=== PATIENT | male | born 1985 | race Hispanic/Latino ===

== ENCOUNTER 2019-03-06 21:20 | Observation (INO) | payer MEDICARE, OTHER ==
[2019-03-06] MEDS ORDERED: NA CHLORIDE 0.9% 1,000 ML ONE (21:58)
[2019-03-06 22:52] LABS: Absolute Lymphocytes (CBC) 1.3 K/uL (0.7-4.9); Basophils % 0.4 % (0-1.3); Hematocrit 43.7 % (39.6-49.0); Lymphocytes % 9.8 % (15.3-44.8); RBC Red Blood Cell Count 5.01 M/uL (4.33-5.43)
[2019-03-06 22:53] LABS: Protime INR 1.13
[2019-03-06] MEDS ORDERED: NA CHLORIDE 0.9% 250 ML ONE (23:03)
[2019-03-06] MEDS ORDERED: NA CHLORIDE 0.9% 2,000 ML ONE (23:03)
[2019-03-06] MEDS ORDERED: VANCOMYCIN 1 GM/VIAL ONE (23:03)
[2019-03-06] MEDS ORDERED: PIPER/TAZO/NS 3.375gm 3.375 GM/100 ML BAG ONE (23:03)
[2019-03-06 23:12] LABS: Blood Morphology Comment NOT SEEN (NOT SEEN); Platelet Estimate ADEQ
[2019-03-06 23:50] LABS: ALT/SGPT 24 U/L (12-78); AST/SGOT 18 U/L (15-37); Albumin 3.4 g/dL (3.4-5.0); Alkaline Phosphatase 91 U/L (45-117); BUN Blood Urea Nitrogen 44 mg/dL (7-18); Bicarbonate 25 mmol/L (21-32); Bilirubin Direct 0.1 mg/dL (0-0.2); Bilirubin Total 0.4 mg/dL (0.2-1.0); Glucose Level 92 mg/dL (74-106); Magnesium 2.2 mg/dL (1.8-2.4); NT PRO-BNP 36 pg/mL (<125); Protein, Total 7.6 g/dL (6.4-8.2); Sodium Level 138 mmol/L (136-145); Thyroid Stimulating Hormone 0.563 uIU/mL (0.360-3.740); Troponin (Emerg Dept Use Only) < 0.02 ng/mL (0.0-0.045)
[2019-03-06 23:51] LABS: Potassium 6.2 mmol/L (3.5-5.1)
[2019-03-07 00:11] LABS: Urine Blood 2+ (NEG); Urine Glucose NEGATIVE (NEG); Urine Protein TRACE (NEG)
[2019-03-07] MEDS ORDERED: ALBUTEROL 2.5 MG/3 ML NEB SOL ONE (00:24)
[2019-03-07] MEDS ORDERED: INSULIN -REGULAR HUMAN 50 UNIT/0.5 ML ML ONE (00:25)
[2019-03-07] MEDS ORDERED: D50W 25 GM/50 ML SYRINGE IV ONE (00:28)
[2019-03-07] MEDS ORDERED: SOD POLYSTYREN SUL 15 GM/60 ML UCUP ONE (00:28)
[2019-03-07 00:41] LABS: Urine Culture Reflex Order NOT NEEDED
[2019-03-07 00:42] LABS: Urine Bacteria <20 /HPF (NONE SEEN)
--- NOTE | 2019-03-07 01:17 | ER ---
Nurse's Notes [facility] Name: Rusty Han Age: 33 yrs Sex: Male : 1985 Arrival Date: 03/06/2019 Time: 21:22 Bed 19 Private MD: Diagnosis: Acute kidney failure;Hyperkalemia;Hypothermia;Elevated white blood cell count;Sepsis Presentation: 03/06 21:10 Presenting complaint: Patient states: that he has been increasingly short of breath fc that comes and goes. But again it started at 1600 today and has not stopped. Pt is also dizzy, diaphoretic, weak and dehydrated. Pt does have a wound to right heel that he says having increasing amt of pus and continuous pain. Transition of care: patient was not received from another setting of care. Onset of symptoms was February 2019. Risk Assessment: Do you want to hurt yourself or someone else? Patient reports no desire to harm self or others. Initial Sepsis Screen: Does the patient meet any 2 criteria? RR > 20 per min. Temp <36.0*C (96.8*F)) or > 38.3*C (100.9*F). HR > 90 bpm. Yes Does the patient have a suspected source of infection? Yes: Other: unknown If YES to both, name of provider notified: Hong DODGE Care prior to arrival: Glucose check: 160. 21:10 Method Of Arrival: EMS: [facility] 21:10 Acuity: BRITTNEY 2 Triage Assessment: 22:07 Respiratory: Reports. ca1 22:08 Respiratory: ca1 22:08 Respiratory: Onset: The symptoms/episode began/occurred. ca1 Historical: - Allergies: 21:31 No Known Allergies; fc - Home Meds: 21:31 baclofen 20 mg Oral tab 1 tab 3 times per day [Active]; Keppra 1,000 mg Oral tab 1 tab fc every 12 hours [Active]; metoprolol tartrate 50 mg Oral tab 1 tab 2 times per day [Active]; alprazolam 0.5 mg oral TbDL 1 tab 3 times per day [Active]; [place] 10-325 mg Oral tab 1 tab every 6 hours [Active]; - PMHx: 21:31 Anxiety; muscle spasms; Hypertension; osteomyelitis; Seizures; T5 injury; Chronic pain; fc - PSHx: 21:31 spinal [id number]; foot surg; - Immunization history:: Last tetanus immunization: up to date. - Social history:: Smoking status: Patient/guardian denies using tobacco, Patient/guardian denies using alcohol, street drugs. - Ebola Screening: : Patient negative for fever greater than or equal to 101.5 degrees Fahrenheit, and additional compatible Ebola Virus Disease symptoms Patient denies exposure to infectious person Patient denies travel to an Ebola-affected area in the 21 days before illness onset. Screenin:10 Abuse screen: Denies threats or abuse. Nutritional screening: No deficits noted. Tuberculosis screening: No symptoms or risk factors identified. Fall Risk Fall in past 12 months (25 points). Secondary diagnosis (15 points) impaired mobility, No IV (0 pts). Ambulatory Aid- Crutches/Cane/Walker (15 pts). Gait- Weak (10 pts.). Mental Status- Overestimates/Forgets Limitations (15 pts.). Total [place] Fall Scale indicates High Risk Score (45 or more points). Fall prevention measures have been instituted. Side Rails Up X 2 Placed Close to Nursing Station Frequent Obs/Assessments Occuring As available patient and family educated on Fall Prevention Program and Strategies. Assessment: 21:30 General: Appears in no apparent distress. ill, Behavior is calm, cooperative, ca1 appropriate for age. Pain: Complains of pain in right foot Pain does not radiate. Pain currently is 3 out of 10 on a pain scale. Neuro: Level of Consciousness is awake, alert, obeys commands, Oriented to person, place, time, situation. Cardiovascular: Heart tones S1 S2 present Capillary refill < 3 seconds Patient's skin is warm and dry. Pulses are all present. Rhythm is sinus tachycardia. Respiratory: Airway is patent Respiratory effort is even, unlabored, Respiratory pattern is regular, symmetrical, Breath sounds are clear bilaterally. GI: Abdomen is round non-distended, Bowel sounds present X 4 quads. Abd is soft and non tender X 4 quads. : No deficits noted. No signs and/or symptoms were reported regarding the genitourinary system. EENT: No deficits noted. No signs and/or symptoms were reported regarding the EENT system. Derm: Skin is intact, is healthy with good turgor, Skin is diaphoretic, Skin is pale, Skin temperature is cold. Musculoskeletal: Amputation of Circulation, motion, and sensation intact. Capillary refill < 3 seconds, Range of motion: intact in all extremities. 21:45 Reassessment: IV inserted but was unable to draw blood. Called lab. Notified CN. ca1 22:11 Reassessment: Clinical Dietician attempted to draw blood. Unsuccessful. Notified CN and ca1 provider. 22:28 Reassessment: Patient appears in no apparent distress at this time. Patient and/or ca1 family updated on plan of care and expected duration. Pain level reassessed. Neuro: Level of Consciousness is awake, alert, obeys commands, Oriented to person, place, time, situation. Derm: Skin is moist, Skin is pink, Skin temperature is cool. 23:14 Reassessment: Patient appears in no apparent distress at this time. Patient and/or ca1 family updated on plan of care and expected duration. Pain level reassessed. Patient is alert, oriented x 3, equal unlabored respirations, skin warm/dry/pink. Notified provider regarding inability to obtain 2nd set of cultures. Provider says to cancel it and start antibiotics. Called lab and talked to Joesph to cancel 2nd set of cultures. 03/07 00:08 Reassessment: Patient appears in no apparent distress at this time. Patient and/or ca1 family updated on plan of care and expected duration. Pain level reassessed. Patient is alert, oriented x 3, equal unlabored respirations, skin warm/dry/pink. Report given IZABELA Diggs. 00:10 Reassessment: Patient appears in no apparent distress at this time. Patient and/or cc3 family updated on plan of care and expected duration. Pain level reassessed. Patient is alert, oriented x 3, equal unlabored respirations, skin warm/dry/pink. Received this male patient from IZABELA Miller as a case of shortness of breath, with midline IV at the right upper arm with ongoing IVF bolus of NS 1 liter and Vancomycin 1 gram infusing well; another IV cannula gauge 22 at the left wrist with ongoing IVF bolus of another liter of NS and Zosyn 3.375 grams infusing well. On room air saturating 100%, not in distress. Patient denies pain at this time. Patient states feeling better. Patient states symptoms have improved. 00:10 General: Appears in no apparent distress. comfortable, Behavior is calm, cooperative, cc3 appropriate for age. 00:10 Pain: Denies pain. Neuro: Level of Consciousness is awake, alert, obeys commands, cc3 Oriented to person, place, time, situation, Appropriate for age. Cardiovascular: Denies chest pain, Capillary refill < 3 seconds Patient's skin is warm and dry. Respiratory: Airway is patent Respiratory effort is even, unlabored, Respiratory pattern is regular, symmetrical. GI: Abdomen is round obese. : Reports he self-catheterizes. EENT: No signs and/or symptoms were reported regarding the EENT system. Derm: Skin is intact, is healthy with good turgor, Skin is pink, warm \T\ dry. normal, Wound noted right plantar area healed wound. 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 Circulation, motion, and sensation intact. Range of motion: intact in all extremities. 01:18 Reassessment: Patient appears in no apparent distress at this time. Patient and/or cc3 family updated on plan of care and expected duration. Pain level reassessed. Patient is alert, oriented x 3, equal unlabored respirations, skin warm/dry/pink. 02:00 Reassessment: Patient appears in no apparent distress at this time. Patient and/or cc3 family updated on plan of care and expected duration. Pain level reassessed. Patient is alert, oriented x 3, equal unlabored respirations, skin warm/dry/pink. Room available in 430, report called and handed over to IZABELA Suarez for continuity of care and management. IZABELA Gibbs assisted the patient to self-catheterize himself with a straight cath just to drain his urine with an output of 800 mL. 02:17 Reassessment: Patient appears in no apparent distress at this time. Patient and/or cc3 family updated on plan of care and expected duration. Pain level reassessed. Patient is alert, oriented x 3, equal unlabored respirations, skin warm/dry/pink. Patient left ER for admission vitally stable by wheelchair escorted by me. No valuables left in the patient's room. Patient denies pain at this time. Patient states feeling better. Patient states symptoms have improved. Vital Signs: 03/06 21:10 BP 111 / 92; Pulse 108; Resp 22; Temp 95.0(O); Pulse Ox 95% on R/A; Weight 127.01 kg fc (R); Height 5 ft. 7 in. (170.18 cm) (R); Pain 4/10; 22:08 BP 109 / 84; Pulse 102; Resp 22 S; Pulse Ox 100% on 2 lpm NC; ca1 22:43 BP 110 / 83; Pulse 100; Resp 21; Pulse Ox 100% on 2 lpm NC; ca1 23:14 BP 105 / 82; Pulse 94; Resp 20 S; Pulse Ox 100% on 2 lpm NC; ca1 0804 00:00 BP 111 / 85; Pulse 96; Resp 16 S; Pulse Ox 100% on R/A; ca1 00:15 BP 118 / 81; Pulse 92; Resp 22 S; Temp 97.7(O); Pulse Ox 100% on R/A; cc3 01:16 BP 113 / 81; Pulse 104; Resp 20 S; Pulse Ox 100% on Nebulizer Mask; cc3 02:00 BP 117 / 79; Pulse 115; Resp 20 S; Temp 98.6(TE); Pulse Ox 98% on R/A; cc3 03/06 21:10 Body Mass Index 43.85 (127.01 kg, 170.18 cm) fc ED Course: 03/06 21:10 Arm band placed on Patient placed in an exam room, on a stretcher. fc 21:10 Patient has correct armband on for positive identification. Placed in gown. Bed in low fc position. Call light in reach. Side rails up X2. ekg monitor tech on. Pulse ox on. NIBP on. 21:10 No provider procedures requiring assistance completed. fc 21:22 Patient arrived in ED. fc 21:22 Hong Vuong PA is PHCP. jr8 21:22 Vladislav Perez MD is Attending Physician. jr8 21:27 Triage completed. fc 21:43 EKG done, by ED staff, reviewed by Hong DODGE. jp3 21:44 Inserted saline lock: 22 gauge in left forearm, using aseptic technique. ca1 21:45 XRAY Chest (1 view) In Process Unspecified. EDMS 21:52 Angela Corona, RN is Primary Nurse. ca1 22:33 Initial lab(s) drawn, by me, sent to lab. First set of blood cultures drawn by me. fc Inserted 18 gauge 10 cm midline to right upper brachial vein on second attempt. First attempt cath would not thread in. Second line with good blood return and flushes well. 23:45 Straight cath inserted, using sterile technique, 16 Fr. Specimen obtained. Returned ca1 clear yellow urine. Patient tolerated well. 23:52 Notified Nurse Practitioner and/or Physician Network Announcer of Notified primary nurse of lp1 Potassium 6.2. 03/07 01:15 Riley Amaya MD is Hospitalizing Provider. jr8 01:18 X-ray completed. Portable x-ray completed in exam room. Patient tolerated procedure mh1 well. 01:19 XRAY Foot RIGHT 3 View In Process Unspecified. EDMS 02:00 Patient admitted, IV remains in place. cc3 Administered Medications: 03/06 22:01 Drug: NS 0.9% 1000 ml Route: IV; Rate: 1000 ml; Site: left forearm; ca1 23:18 Follow up: Response: No adverse reaction; IV Status: Completed infusion ca1 23:00 Drug: Zosyn 3.375 grams Route: IVPB; Infused Over: 60 mins; Site: left forearm; ca1 03/07 00:15 Follow up: Response: No adverse reaction; IV Status: Completed infusion; IV Intake: cc3 100ml 03/06 23:00 Drug: NS 0.9% (30 ml/kg) 30 ml/kg Route: IV; Rate: bolus; Site: right upper arm; ca1 03/07 02:15 Follow up: Response: No adverse reaction; IV Status: Completed infusion; IV Intake: cc3 3810.3ml 03/06 23:26 Drug: vancoMYCIN 1 grams Route: IVPB; Infused Over: 2 hrs; Site: right upper arm; ca1 03/07 01:10 Follow up: Response: No adverse reaction; IV Status: Completed infusion; IV Intake: cc3 250ml 00:30 Drug: Kayexalate 30 grams Route: PO; cc3 01:00 Follow up: Response: No adverse reaction cc3 00:30 Drug: D50W 50 ml Route: IVP; Site: left wrist; cc3 01:00 Follow up: Response: No adverse reaction cc3 00:35 Drug: Albuterol 2.5 mg Route: Inhalation; cc3 00:37 Drug: Insulin Regular Human 10 units {Co-Signature: [email or web address] (Sai Harris RN).} Route: cc3 IVP; Site: left wrist; 01:00 Follow up: Response: No adverse reaction cc3 00:55 Drug: Albuterol 2.5 mg Route: Inhalation; cc3 01:18 Drug: Albuterol 2.5 mg Route: Inhalation; cc3 01:40 Follow up: Response: No adverse reaction; Marked relief of symptoms cc3 Intake: 00:15 IV: 100ml; Total: 100ml. cc3 01:10 IV: 250ml; Total: 350ml. cc3 02:15 IV: 3810ml; Total: 4160ml. cc3 Output: 00:02 Urine: 200ml (Straight Cath); Total: 200ml. ca1 Outcome: 01:15 Decision to Hospitalize by Provider. jr8 02:00 Admitted to Tele accompanied by nurse, via wheelchair, room 430, with chart, Report cc3 called to IZABELA Suarez 02:00 Condition: stable 02:00 Instructed on the need for admit, Demonstrated understanding of instructions. 02:17 Patient left the ED. cc3 Signatures: Dispatcher [employer] EDMS Colette Benson 1 Andreia Ashraf, RN RN fc Sania Mcgregor, RN RN lp1 Hong Vuong PA PA jr8 Haider Parson 3 Caterina Munroe cc3 Angela Corona RN RN ca1 Sai Harris RN [email or web address] Corrections: (The following items were deleted from the chart) 03/06 22:05 22:05 Inserted saline lock: 22 gauge in left forearm, using aseptic technique. ca1 ca1 22:30 22:08 BP 109 / 84; Pulse 102bpm; Resp 22bpm; Spontaneous; Pulse Ox 100% 2 lpm Nasal ca1 Cannula; ca1 23:20 23:00 Zosyn 3.375 grams IVPB in right forearm over 60 mins ca1 ca1
--- NOTE | 2019-03-07 01:18 | EDPHYS ---
Physician Documentation [facility] Name: Rusty Han Age: 33 yrs Sex: Male : 1985 Arrival Date: 03/06/2019 Time: 21:22 Bed 19 Private MD: ED Physician Vladislav Perez HPI: 03/07 00:45 This 33 yrs old Male presents to ER via EMS with complaints of Shortness Of jr8 Breath. 00:45 The patient has shortness of breath at rest. Onset: The symptoms/episode began/occurred jr8 gradually, 3 day(s) ago. Duration: The symptoms are intermittent. The patient's shortness of breath is aggravated by exertion. Associated signs and symptoms: The patient has no apparent associated signs or symptoms. Severity of symptoms: At their worst the symptoms were moderate in the emergency department the symptoms are unchanged. The patient has not experienced similar symptoms in the past. The patient has not recently seen a physician. Patient stated that he has had recent episodic shortness of breath that is now more persistent. Stated that his right foot also has wound that appears to be draining . Historical: - Allergies: 03/06 21:31 No Known Allergies; fc - Home Meds: 21:31 baclofen 20 mg Oral tab 1 tab 3 times per day [Active]; Keppra 1,000 mg Oral tab 1 tab fc every 12 hours [Active]; metoprolol tartrate 50 mg Oral tab 1 tab 2 times per day [Active]; alprazolam 0.5 mg oral TbDL 1 tab 3 times per day [Active]; Mcallister 10-325 mg Oral tab 1 tab every 6 hours [Active]; - PMHx: 21:31 Anxiety; muscle spasms; Hypertension; osteomyelitis; Seizures; T5 injury; Chronic pain; fc - PSHx: 21:31 spinal ccultor-E7-7; foot surg; fc - Immunization history:: Last tetanus immunization: up to date. - Social history:: Smoking status: Patient/guardian denies using tobacco, Patient/guardian denies using alcohol, street drugs. - Ebola Screening: : Patient negative for fever greater than or equal to 101.5 degrees Fahrenheit, and additional compatible Ebola Virus Disease symptoms Patient denies exposure to infectious person Patient denies travel to an Ebola-affected area in the 21 days before illness onset. ROS: 03/07 00:45 Eyes: Negative for injury, pain, redness, and discharge, ENT: Negative for injury, jr8 pain, and discharge, Neck: Negative for injury, pain, and swelling, Cardiovascular: Negative for chest pain, palpitations, and edema, Abdomen/GI: Negative for abdominal pain, nausea, vomiting, diarrhea, and constipation, Back: Negative for injury and pain, Skin: Negative for injury, rash, and discoloration, Neuro: Negative for headache, weakness, numbness, tingling, and seizure. Respiratory: Positive for dyspnea on exertion, shortness of breath. MS/extremity: Positive for open wound right foot. Exam: 00:45 Eyes: Pupils equal round and reactive to light, extra-ocular motions intact. Lids and jr8 lashes normal. Conjunctiva and sclera are non-icteric and not injected. Cornea within normal limits. Periorbital areas with no swelling, redness, or edema. ENT: Nares patent. No nasal discharge, no septal abnormalities noted. Tympanic membranes are normal and external auditory canals are clear. Oropharynx with no redness, swelling, or masses, exudates, or evidence of obstruction, uvula midline. Mucous membranes moist. Neck: Trachea midline, no thyromegaly or masses palpated, and no cervical lymphadenopathy. Supple, full range of motion without nuchal rigidity, or vertebral point tenderness. No Meningismus. Cardiovascular: Regular rate and rhythm with a normal S1 and S2. No gallops, murmurs, or rubs. Normal PMI, no JVD. No pulse deficits. Respiratory: Lungs have equal breath sounds bilaterally, clear to auscultation and percussion. No rales, rhonchi or wheezes noted. No increased work of breathing, no retractions or nasal flaring. Abdomen/GI: Soft, non-tender, with normal bowel sounds. No distension or tympany. No guarding or rebound. No evidence of tenderness throughout. Back: No spinal tenderness. No costovertebral tenderness. Full range of motion. Neuro: Awake and alert, GCS 15, oriented to person, place, time, and situation. Cranial nerves II-XII grossly intact. Motor strength 5/5 in all extremities. Sensory grossly intact. Cerebellar exam normal. Normal gait. 00:45 Musculoskeletal/extremity: Extremities: grossly normal except: noted in the right foot: Patient has small < 1 cm open wound to right heel. No active draining noted. No erythema/cellulitis , ROM: intact in all extremities, Circulation is intact in all extremities. Sensation intact. 00:45 Skin: Appearance: Color: normal in color, Temperature: cold, Moisture: diaphoretic. Vital Signs: 03/06 21:10 BP 111 / 92; Pulse 108; Resp 22; Temp 95.0(O); Pulse Ox 95% on R/A; Weight 127.01 kg fc (R); Height 5 ft. 7 in. (170.18 cm) (R); Pain 4/10; 22:08 BP 109 / 84; Pulse 102; Resp 22 S; Pulse Ox 100% on 2 lpm NC; ca1 22:43 BP 110 / 83; Pulse 100; Resp 21; Pulse Ox 100% on 2 lpm NC; ca1 23:14 BP 105 / 82; Pulse 94; Resp 20 S; Pulse Ox 100% on 2 lpm NC; ca1 03/07 00:00 BP 111 / 85; Pulse 96; Resp 16 S; Pulse Ox 100% on R/A; ca1 00:15 BP 118 / 81; Pulse 92; Resp 22 S; Temp 97.7(O); Pulse Ox 100% on R/A; cc3 01:16 BP 113 / 81; Pulse 104; Resp 20 S; Pulse Ox 100% on Nebulizer Mask; cc3 02:00 BP 117 / 79; Pulse 115; Resp 20 S; Temp 98.6(TE); Pulse Ox 98% on R/A; cc3 03/06 21:10 Body Mass Index 43.85 (127.01 kg, 170.18 cm) fc MDM: 03/06 21:22 Patient medically screened. jr8 03/07 01:14 Data reviewed: vital signs, nurses notes, lab test result(s), EKG, radiologic studies, jr8 plain films. Data interpreted: Pulse oximetry: on room air is 100 %. Interpretation: normal. Counseling: I had a detailed discussion with the patient and/or guardian regarding: the historical points, exam findings, and any diagnostic results supporting the discharge/admit diagnosis, lab results, radiology results, the need for further work-up and treatment in the hospital. Physician consultation: Riley Amaya MD was called at 01:14, was contacted at 01:14, regarding admission, to the telemetry unit. consult, patient's condition, and will see patient. 03/06 21:23 Order name: Basic Metabolic Panel [facility] 03/06 21:23 Order name: CBC with Diff [facility] 03/06 21:23 Order name: LFT's [facility] 03/06 21:23 Order name: Magnesium; Complete Time: 00:04 8 03/06 21:23 Order name: NT PRO-BNP; Complete Time: 00:04 8 03/06 21:23 Order name: PT-INR; Complete Time: 22:55 8 03/06 21:23 Order name: Troponin (emerg Dept Use Only); Complete Time: 00:04 8 03/06 21:23 Order name: TSH; Complete Time: 00:04 8 03/06 21:23 Order name: T4 Free; Complete Time: 00:04 8 03/06 21:23 Order name: Procalcitonin; Complete Time: 00:38 8 03/06 21:23 Order name: Lactate; Complete Time: 00:04 [facility] 03/06 21:23 Order name: Blood Culture Adult (2) [facility] 03/06 21:23 Order name: Basic Metabolic Panel; Complete Time: 00:04 EDMS 03/06 21:23 Order name: CBC with Automated Diff; Complete Time: 23:18 EDMS 03/06 21:23 Order name: Liver (Hepatic) Function; Complete Time: 00:04 EDMS 03/06 21:35 Order name: Glucose, Ancillary Testing; Complete Time: 21:47 EDMS 03/06 22:54 Order name: Manual Differential; Complete Time: 23:18 EDMS 03/06 23:56 Order name: Urine Dipstick--Ancillary (enter results); Complete Time: 00:24 lp1 03/07 00:04 Order name: Urine Microscopic Only; Complete Time: 00:44 jr8 03/07 01:10 Order name: Cortisol [facility] 03/07 01:34 Order name: Basic Metabolic Panel EDMS 03/07 01:34 Order name: Basic Metabolic Panel EDMS 03/07 01:34 Order name: Basic Metabolic Panel EDMS 03/07 01:34 Order name: CBC with Automated Diff EDMS 03/07 01:34 Order name: CBC with Automated Diff EDMS 03/07 01:34 Order name: CBC with Automated Diff EDMS 03/07 01:34 Order name: Hemoglobin A1c EDMS 03/07 01:34 Order name: Hemoglobin A1c EDMS 03/07 01:34 Order name: Lipid Profile EDMS 03/07 01:34 Order name: Lipid Profile EDMS 03/06 21:23 Order name: XRAY Chest (1 view) jr8 03/06 21:23 Order name: EKG; Complete Time: 21:24 jr8 03/06 21:23 Order name: Cardiac monitoring; Complete Time: 21:44 jr8 03/06 21:23 Order name: EKG - Nurse/Tech; Complete Time: 21:44 jr8 03/06 21:23 Order name: IV Saline Lock; Complete Time: 21:44 8 03/06 21:23 Order name: Labs collected and sent; Complete Time: 22:38 jr8 03/06 21:23 Order name: O2 Per Protocol; Complete Time: 21:44 jr8 03/06 21:23 Order name: O2 Sat Monitoring; Complete Time: 21:44 [facility] 03/07 00:24 Order name: XRAY Foot RIGHT 3 View jr8 03/07 01:34 Order name: CONS Pharmacy Consult EDMS 03/07 01:34 Order name: CONS Pharmacy Consult EDMS 03/07 01:34 Order name: Consistent Carb (ADA) [address] EDMS 03/07 01:34 Order name: Urine Microalbumin/Creatinine EDMS 03/07 01:34 Order name: Urine Microalbumin/Creatinine EDMS 03/07 01:35 Order name: Protime (+INR) EDMS 03/07 01:35 Order name: Protime (+INR) EDMS 03/07 01:35 Order name: Protime (+INR) EDMS 03/07 01:35 Order name: PTT, Activated Partial Thromb EDMS 03/07 01:35 Order name: PTT, Activated Partial Thromb EDMS 03/07 01:37 Order name: Urinalysis W/Microscopic EDMS 03/07 01:37 Order name: Urinalysis W/Microscopic EDMS Administered Medications: 03/06 22:01 Drug: NS 0.9% 1000 ml Route: IV; Rate: 1000 ml; Site: left forearm; ca1 23:18 Follow up: Response: No adverse reaction; IV Status: Completed infusion ca1 23:00 Drug: Zosyn 3.375 grams Route: IVPB; Infused Over: 60 mins; Site: left forearm; ca1 03/07 00:15 Follow up: Response: No adverse reaction; IV Status: Completed infusion; IV Intake: cc3 100ml 03/06 23:00 Drug: NS 0.9% (30 ml/kg) 30 ml/kg Route: IV; Rate: bolus; Site: right upper arm; ca1 03/07 02:15 Follow up: Response: No adverse reaction; IV Status: Completed infusion; IV Intake: cc3 3810.3ml 03/06 23:26 Drug: vancoMYCIN 1 grams Route: IVPB; Infused Over: 2 hrs; Site: right upper arm; ca1 03/07 01:10 Follow up: Response: No adverse reaction; IV Status: Completed infusion; IV Intake: cc3 250ml 00:30 Drug: Kayexalate 30 grams Route: PO; cc3 01:00 Follow up: Response: No adverse reaction cc3 00:30 Drug: D50W 50 ml Route: IVP; Site: left wrist; cc3 01:00 Follow up: Response: No adverse reaction cc3 00:35 Drug: Albuterol 2.5 mg Route: Inhalation; cc3 00:37 Drug: Insulin Regular Human 10 units {Co-Signature: [email or web address] (Sai Harris RN).} Route: cc3 IVP; Site: left wrist; 01:00 Follow up: Response: No adverse reaction cc3 00:55 Drug: Albuterol 2.5 mg Route: Inhalation; cc3 01:18 Drug: Albuterol 2.5 mg Route: Inhalation; cc3 01:40 Follow up: Response: No adverse reaction; Marked relief of symptoms cc3 Disposition: 03/07/19 01:15 Hospitalization ordered by Riley Amaya for Inpatient Admission. Preliminary diagnosis are Acute kidney failure, Hyperkalemia, Hypothermia, Elevated white blood cell count, Sepsis. - Bed requested for Telemetry/MedSurg (Inpatient). - Status is Inpatient Admission. cc3 - Condition is Stable. - Problem is new. - Symptoms have improved. UTI on Admission? No Addendum: 03/08/2019 09:24 Co-signature as Attending Physician, Vladislav Perez MD I agree with the assessment and c [facility] plan of care. Signatures: Dispatcher [employer] Vladislav Abebe MD MD cha Chretien, Felicia, RN RN Hong Vuong PA PA jr8 Caterina Munroe cc3 Angela Corona RN RN [facility] Sai Harris RN [email or web address] Corrections: (The following items were deleted from the chart) 03/07 01:47 01:15 Hospitalization Ordered by Riley Amaya MD for Inpatient Admission. Preliminary [facility] diagnosis is Acute kidney failure; Hyperkalemia; Hypothermia; Elevated white blood cell count; Sepsis. Bed requested for Telemetry/MedSurg (Inpatient). Status is Inpatient Admission. Condition is Stable. Problem is new. Symptoms have improved. UTI on Admission? No. jr8 02:17 01:47 03/07/2019 01:15 Hospitalization Ordered by Riley Amaya MD for Inpatient cc3 Admission. Preliminary diagnosis is Acute kidney failure; Hyperkalemia; Hypothermia; Elevated white blood cell count; Sepsis. Bed requested for Telemetry/MedSurg (Inpatient). Status is Inpatient Admission. Condition is Stable. Problem is new. Symptoms have improved. UTI on Admission? No. theodore
[2019-03-07] MEDS ORDERED: HYDROMORPHONE HCL 1 MG/ML INJ IV PRN (01:27)
[2019-03-07] MEDS ORDERED: ACETAMINOPHEN 500 MG TAB PO PRN (01:27)
[2019-03-07] MEDS ORDERED: ONDANSETRON 4 MG/2 ML VIAL IV PRN (01:27)
[2019-03-07] MEDS ORDERED: VANCOMYCIN/NS 1 gm 1 GM/250 ML BAG IVPB SCH (01:30)
[2019-03-07] MEDS ORDERED: NA CHLORIDE 0.9% 1,000 ML ONE ×2 (01:38→02:53)
[2019-03-07] MEDS ORDERED: Levofloxacin500mg IV 500 MG/100 ML BAG IV SCH (02:00)
[2019-03-07] MEDS ORDERED: NA CHLORIDE 0.9% 1,000 ML IV SCH (02:00)
[2019-03-07 02:50] VITALS: O2SAT 98
[2019-03-07] MEDS ORDERED: Levofloxacin500mg IV 500 MG/100 ML BAG IV ONE (03:02)
[2019-03-07 04:04] VITALS: BMI 42.0
[2019-03-07 05:14] LABS: Urine Appearance CLEAR; Urine Bilirubin NEGATIVE (NEG); Urine Blood NEGATIVE (NEG); Urine Color YELLOW; Urine Glucose NEGATIVE (NEG); Urine Protein NEGATIVE (NEG); Urine Urobilinogen 0.2 mg/dL (0.2-1.0); Urine pH 5.5 (5.0-7.0)
[2019-03-07 05:25] LABS: Barbiturates NEGATIVE (NEGATIVE); Benzodiazepines NEGATIVE (NEGATIVE); Cocaine NEGATIVE (NEGATIVE); METHAMPHETAM POSITIVE (NEGATIVE); Methadone NEGATIVE (NEGATIVE); Opiates NEGATIVE (NEGATIVE); Phencyclidine NEGATIVE (NEGATIVE); THC Cannibis POSITIVE (NEGATIVE)
[2019-03-07 05:30] LABS: Urine Bacteria <20 /HPF (NONE SEEN); Urine Culture Reflex Order REFLEXED; Urine RBC <5 /HPF (NONE SEEN)
[2019-03-07 05:32] LABS: UR MICROALBUMIN 4.2 mg/dL (< 1.9)
[2019-03-07 06:00] LABS: Basophils % 0.7 % (0-1.3); Hematocrit 35.6 % (39.6-49.0); Lymphocytes % 27.3 % (15.3-44.8); MPV 7.9 fL (7.6-11.3); RBC Red Blood Cell Count 4.17 M/uL (4.33-5.43)
[2019-03-07 06:04] LABS: Protime INR 1.06
[2019-03-07 06:15] LABS: BUN Blood Urea Nitrogen 37 mg/dL (7-18); Bicarbonate 24 mmol/L (21-32); Glucose Level 111 mg/dL (74-106); HDL Cholesterol 26 mg/dL (40-60); LDL Cholesterol, Calculated 56 (<130); Potassium 3.8 mmol/L (3.5-5.1); Sodium Level 142 mmol/L (136-145)
[2019-03-07 09:25] VITALS: BP 127/70; TEMP 98.6
[2019-03-07] MEDS ORDERED: METOCLOPRAMIDE 5 MG TAB PO ONE (11:02)
[2019-03-07] MEDS ORDERED: LORAZEPAM 1 MG TABLET PO ONE (11:49)
[2019-03-07] MEDS ORDERED: LORazepam 2 MG/ML VIAL IV ONE (12:18)
--- NOTE | 2019-03-07 12:41 | RAD REPORT ---
EXAM DESCRIPTION: RAD - Chest Single View - 03/06/2019 9:47 pm CLINICAL HISTORY: Dyspnea, intermittent shortness of breath COMPARISON: October 2015 TECHNIQUE: AP portable chest image was obtained 2143 hours . FINDINGS: Lung volumes are low. No focal lung process. Lung markings match comparison. No failure or volume overload. Heart and vasculature are normal. No measurable pleural effusion and no pneumothora x. No acute bony abnormality seen. No acute aortic findings suspected. IMPRESSION: No acute cardiopulmonary process. No significant change from comparison.
--- NOTE | 2019-03-07 12:42 | EKG ---
Test Date: 2019-03-06 Test Time: 21:37:16 Manufacturing Technology Professor: SELMA MEASUREMENT RESULTS: Intervals: Rate: 108 WI: 134 QRSD: 68 QT: 302 QTc: 404 Garrison: P: 35 WI: 134 QRS: 32 T: 21 INTERPRETIVE STATEMENTS: Sinus tachycardia Otherwise normal ECG Compared to ECG 10/05/2015 09:38:12 No significant changes Electronically Signed On 03-07-19 07:13:41 CDT by Aquiles Carye
--- NOTE | 2019-03-07 12:56 | P.SSS ---
Patient History Date of Service: 03/07/19 History of Present Illness: This is a 33-year-old male with significant past medical history of drug abuse with positive UA of med and THC will also abuses his anxiety and anxiety medication came to the ER complaining of having dyspnea and drainage from the foot. Patient was admitted to the hospital for dyspnea and possible infection of the foot. Allergies NKDA Allergy (Uncoded 08/02/15 16:48) Unknown Home Medications: ALPRAZolam [Alprazolam] 0.5 mg PO TID 03/07/19 Baclofen [Lioresal] 20 mg PO TID 03/07/19 Hydrocodone/Acetaminophen [Carlisle 10-325 Tablet] 1 tab PO Q6HR PRN 03/07/19 Metoprolol Tartrate [Lopressor*] 50 mg PO BID 03/07/19 Pantoprazole Sodium 40 mg PO DAILY 03/07/19 Trazodone HCl 50 mg PO BEDTIME PRN 03/07/19 Venlafaxine HCl 75 mg PO DAILY 03/07/19 levETIRAcetam [Keppra*] 1,000 mg PO BID 03/07/19 - Past Medical/Surgical History Has patient received pneumonia vaccine in the past: No Diabetic: No -: osteomyelitis -: anxiety -: chronic pain back -: spinal fracture -: neuropathy -: Pt reports had an infection on right heel in may, unsure of what it was -: paralysis for 3 yrs. 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 moist/pink, EOMI, Sclerae nonicteric Neck: Supple, 2+ carotid pulse no bruit, No LAD, Without JVD or thyroid abnormality Respiratory: Clear to auscultation bilaterally, Normal air movement Cardiovascular: Regular rate/rhythm, Normal S1 S2 Gastrointestinal: Normal bowel sounds, No tenderness Musculoskeletal: No tenderness Integumentary: No rashes Neurological: Normal gait, Normal speech, Normal strength at 5/5 x4 extr, Normal tone, Normal affect Lymphatics: No axilla or inguinal lymphadenopathy - Studies Laboratory Data (last 24 hrs) 03/06/19 22:33: PT 13.3 H, INR 1.13 03/06/19 22:33: WBC 13.3 H, Hgb 14.3, Hct 43.7, Plt Count 392 03/06/19 22:33: Sodium 138, Potassium 6.2 H*, BUN 44 H, Creatinine 1.40 H, Glucose 92, Magnesium 2.2, Total Bilirubin 0.4, AST 18, ALT 24, Alkaline Phosphatase 91 - Diagnosis (Problem(s)) (1) Drug abuse Status: Acute (2) Withdrawal from recreational drug Status: Acute (3) 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 Patient was evaluated thoroughly here in the hospital on physical exam if patient does have chronic stage IV pressure ulcer which has completely healed on the right lower heel. No drainage was noted. Patient does have an appointment with the wound healing center on Friday to follow up for his regular appointment. Patient was given 1 time dose of antibiotics here in the hospital and no other antibiotics were continued after due to no infection found on the physical exam. Patient however will continue to have dyspnea and paranoia along with tachycardia here in the hospital which was most likely secondary to methamphetamine withdrawal as the patient takes on a regular basis. Patient also admitted to over using his anti anxiety medications that he gets from his primary care doctor's office. When patient remained stable patient was discharged home under stable condition. Family at bedside were explained extensive regarding the need to take part in a drug rehab program. Family demonstrated understanding and took the patient home under stable condition - Disposition Disposition: ROUTINE DISCHARGE Condition: GOOD Diet: Regular Activity: Ad josh
--- NOTE | 2019-03-07 14:38 | RAD REPORT ---
EXAM DESCRIPTION: RAD - Foot Right 3 View - 03/07/2019 1:19 am CLINICAL HISTORY: Right heel pain, increasing pain and infectious debris COMPARISON: Right foot April 2015 FINDINGS: The fourth and fifth toes and the fourth metatarsal head has been resected. This is a long -standing finding. Postsurgical hardware is present along the distal tibia. Compared with 2015 there has been volume loss to the calcaneus. Faint lucencies are present in the central calcaneus. There is a small lucent area in the plantar surface mid calcaneus. This is adjacent to the wound. No foreign body or calcification in the soft tissues. . IMPRESSION: Soft tissue wound is present. Areas of lucency in the calcaneus are present has potentia l sites of osteomyelitis. No gross bone destruction.
[2019-03-07] MEDS ORDERED: ENOXAPARIN 30 MG/0.3 ML SQ SCH (17:00)
[2019-03-08] MEDS ORDERED: Levofloxacin500mg IV 500 MG/100 ML BAG IV SCH (03:00)
--- NOTE | 2019-03-08 08:19 | P.HP ---
Certification for Inpatient Patient admitted to: Observation With expected LOS: <2 Midnights Patient will require the following post-hospital care: None Practitioner: I am a practitioner with admitting privileges, knowledge of patient current condition, hospital course, and medical plan of care. Services: Services provided to patient in accordance with Admission requirements found in Title 42 Section 412.3 of the Code of Federal Regulations Patient History Date of Service: 03/07/19 Reason for admission: Diabetic foot; hypertension; seizures History of Present Illness: Patient is a 33-year-old gentleman who came into the hospital with some shortness of breath. Patient was diaphoretic with lightheadedness and weakness. Patient was dehydrated. Patient was noted have surgery on the right foot a few months prior. Patient healed well but now continues to have some drainage. Patient looks to have Charcot's joint . Patient has increased risk of infection. Patient will need to be admitted to the hospital for further evaluation. Allergies NKDA Allergy (Uncoded 08/02/15 16:48) Unknown Home Medications: ALPRAZolam [Alprazolam] 0.5 mg PO TID 03/07/19 Baclofen [Lioresal] 20 mg PO TID 03/07/19 Hydrocodone/Acetaminophen [Narvon 10-325 Tablet] 1 tab PO Q6HR PRN 03/07/19 Metoprolol Tartrate [Lopressor*] 50 mg PO BID 03/07/19 Pantoprazole Sodium 40 mg PO DAILY 03/07/19 Trazodone HCl 50 mg PO BEDTIME PRN 03/07/19 Venlafaxine HCl 75 mg PO DAILY 03/07/19 levETIRAcetam [Keppra*] 1,000 mg PO BID 03/07/19 - Past Medical/Surgical History Has patient received pneumonia vaccine in the past: No Diabetic: No -: osteomyelitis -: anxiety -: chronic pain back -: spinal fracture -: neuropathy -: Pt reports had an infection on right heel in may, unsure of what it was -: paralysis for 3 yrs. 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 -: flap heel right foot -: right ankle surgery -: cut tendon's on 2nd and 3rd toe of right foot-10/04/14 - Family History Father Medical History: Hypertension Mother Medical History: Hypertension - Social History Smoking Status: Current some day smoker Alcohol use: Yes CD- Drugs: Yes Caffeine use: Yes Place of Residence: Home Review of Systems 10-point ROS is otherwise unremarkable Physical Examination - Vital Signs Temperature: 98.6 F Blood Pressure: 127/70 Pulse: 102 Respirations: 18 Pulse Ox (%): 100 - Physical Exam General: Alert, In no apparent distress, Oriented x3 HEENT: Atraumatic, PERRLA, Mucous membr. moist/pink, EOMI, Sclerae nonicteric Neck: Supple, 2+ carotid pulse no bruit, No LAD, Without JVD or thyroid abnormality Respiratory: Clear to auscultation bilaterally, Normal air movement Cardiovascular: Regular rate/rhythm, Normal S1 S2, Systolic murmur Gastrointestinal: Normal bowel sounds, Soft and benign, Non-distended, No tenderness Musculoskeletal: No clubbing, No swelling, Erythema, Tenderness, Warmth Integumentary: No rashes Neurological: Normal speech, Normal tone, Sensation intact, Cranial nerves 3-12 intact, Normal affect, Abnormal gait, Abnormal strength Lymphatics: No axilla or inguinal lymphadenopathy Assessment & Plan - Problems (Diagnosis) (1) Diabetic foot infection Status: Acute (2) Charcot's joint Status: Acute (3) Type 1 diabetes Status: Acute (4) Pain in right foot Status: Chronic - Plan 1. Continue with IV antibiotic 2. Continue with local wound care 3. ? surgical consultation/may need MRI of the foot 4. Gentle IV hydration 5. Monitor CBC 6. Strict blood sugar monitoring 7. Pain control 8. GI and DVT prophylaxis Discharge Plan: Home Plan to discharge in: 48 Hours - Advance Directives Does patient have a Living Will: No Does patient have a Durable POA for Healthcare: No - Code Status/Comfort Care Code Status Assessed: Yes Code Status: Full Code Critical Care: No Time Spent Managing PTS Care (In Minutes): 45
== END 2019-03-07 12:49 | disposition home or self-care (01) ==
LOC: ER 21:20 → INTOOBSV 03-07 01:48 → ERHOLD 03-07 01:48 → 4TH 03-07 02:07
PROVIDERS: ADMIT Hospitalist; ATTEND Family Medicine
DX: E10.628 Type 1 diabetes mellitus with other skin complications (principal); L03.115 Cellulitis of right lower limb; L89.614 Pressure ulcer of right heel, stage 4; E10.610 Type 1 diabetes mellitus with diabetic neuropathic arthropathy; E86.0 Dehydration; F15.93 Other stimulant use, unspecified with withdrawal; F41.9 Anxiety disorder, unspecified; G89.29 Other chronic pain; M54.9 Dorsalgia, unspecified; E87.5 Hyperkalemia; N17.9 Acute kidney failure, unspecified; F17.200 Nicotine dependence, unspecified, uncomplicated; Z79.899 Other long term (current) drug therapy; Z87.39 Personal history of other diseases of the musculoskeletal system and connective tissue
CPT/HCPCS: 96365; 96367; 96368; 93005; 87040; 87088; 85025 ×2; 81001; 80048 ×2; 36415; 83735; 85610 ×2; 80061; 82962 ×3; 80076; 80307 ×8; 83605; 85730; 84443; 83036; 82570; 84484; 84439; 82533; 84145; 83880; 82043; 71045; 73630; 51702; 96375; 99285; 96366; G0379; J2543; J7030 ×4; G0378; 81003; 81015; 87086

== ENCOUNTER 2020-02-24 21:02 | Emergency (ER) | payer MEDICARE ==
[2020-02-24 21:42] LABS: Absolute Lymphocytes (CBC) 1.5 K/uL (0.7-4.9); Basophils % 0.6 % (0-1.3); Hematocrit 34.4 % (39.6-49.0); Lymphocytes % 26.4 % (15.3-44.8); MPV 7.4 fL (7.6-11.3); RBC Red Blood Cell Count 4.36 M/uL (4.33-5.43)
[2020-02-24 21:43] LABS: Protime INR 1.08
[2020-02-24 21:48] LABS: BUN Blood Urea Nitrogen 15 mg/dL (7-18); Bicarbonate 27 mmol/L (21-32); Glucose Level 94 mg/dL (74-106); Potassium 4.2 mmol/L (3.5-5.1); Sodium Level 141 mmol/L (136-145)
[2020-02-24] MEDS ORDERED: NA CHLORIDE 0.9% 1,000 ML ONE (21:53)
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
[2020-02-24] MEDS ORDERED: KETOROLAC 30 MG/ML INJ ONE (23:19)
[2020-02-24 23:39] VITALS: TEMP 98.2
[2020-02-24 23:44] VITALS: BP 120/85; O2SAT 99
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
== END 2020-02-24 23:23 | disposition home or self-care (01) ==
LOC: ER 21:02
DX: M54.6 Pain in thoracic spine (principal); V59.49XA Driver of pick-up truck or van injured in collision with other motor vehicles in traffic accident, initial encounter; I10 Essential (primary) hypertension; F17.210 Nicotine dependence, cigarettes, uncomplicated
CPT/HCPCS: 96361; 85025; 80048; 36415; 86900; 86850; 85610; 82565; 86901; 70450; 72125; 71260; 74177; 96374; 99285; Q9967; J7030

== ENCOUNTER 2022-03-02 08:51 | Emergency (ER) | payer OTHER ==
[2022-03-02 09:58] LABS: Absolute Lymphocytes (CBC) 1.4 K/uL (0.7-4.9); Hematocrit 37.6 % (39.6-49.0); MCV 82.9 fL (80-100); MPV 7.1 fL (7.6-11.3); RBC Red Blood Cell Count 4.54 M/uL (4.33-5.43)
[2022-03-02 10:23] LABS: Albumin 3.5 g/dL (3.4-5.0); Bilirubin Total 1.2 mg/dL (0.2-1.0); Potassium 3.7 mmol/L (3.5-5.1); Protein, Total 8.7 g/dL (6.4-8.2)
--- NOTE | 2022-03-02 10:32 | RAD REPORT ---
EXAM DESCRIPTION: CT - Abdomen Pelvis W Contrast - 03/02/2022 9:46 am CLINICAL HISTORY: Abdominal pain COMPARISON: 2014 TECHNIQUE: Computed axial tomography of the abdomen pelvis was obtained. 100 cc Isovue-300 was admin istered intravenously. Oral contrast was not requested which limits evaluation of bowel and appendix All CT scans are performed using dose optimization technique as appropriate and may include automated exposure control or mA/KV adjustment according to patient size. FINDINGS: A small hiatal hernia. Tiny umbilical hernia. Calcified lung granulomas The liver, spleen, pancreas, adrenal and kidneys appear unremarkable. There is no evidence of diverticulitis. Normal bowel caliber Normal appendix. Moderate bilateral inguinal hernias contain fat. Postsurgical changes involve the spine. Bladder wall appears thickened IMPRESSION: Moderate bilateral inguinal hernias Apparent bladder wall thickening may be secondary to incomplete distention or inflammation
[2022-03-02] MEDS ORDERED: ONDANSETRON 4 MG/2 ML VIAL ONE (10:51)
[2022-03-02] MEDS ORDERED: FAMOTIDINE 20 MG/2 ML VIAL IV ONE (10:51)
[2022-03-02] MEDS ORDERED: NA CHLORIDE 0.9% 1,000 ML ONE (10:51)
[2022-03-02 10:57] LABS: Urine Blood Trace-intact (Negative); Urine Glucose Negative (Negative); Urine Protein Trace (Negative)
[2022-03-02 11:16] LABS: Urine Bacteria 20-50 /HPF (<20); Urine RBC <5 /HPF (None Seen)
[2022-03-02 11:18] LABS: Urine Mucus Slight /HPF (None Seen)
[2022-03-02] MEDS ORDERED: NA CHLORIDE 0.9% 100 ML ONE (11:42)
[2022-03-02] MEDS ORDERED: CEFTRIAXONE 1000 MG/VIAL ONE (11:42)
--- NOTE | 2022-03-02 11:54 | ER ---
Nurse's Notes [facility] Name: Rusty Han Age: 36 yrs Sex: Male : 1985 Arrival Date: 03/02/2022 Time: 08:54 Bed Treatment Private MD: Dominique Carlisle Diagnosis: UTI/ Urinary tract infection, site not specified;Nausea with vomiting, unspecified Presentation: 03/02 09:09 Chief complaint: Patient states: N/V that began 3 days ago. Pt reports this seems to ss only occur 30-45 minutes after he eats. Denies diarrhea. Coronavirus screen: Client denies travel out of the [place] in the last 14 days. Ebola Screen: Patient denies exposure to infectious person. Patient denies travel to an Ebola-affected area in the 21 days before illness onset. Initial Sepsis Screen: Does the patient meet any 2 criteria? No. Patient's initial sepsis screen is negative. Does the patient have a suspected source of infection? No. Patient's initial sepsis screen is negative. Risk Assessment: Do you want to hurt yourself or someone else? Patient reports no desire to harm self or others. Onset of symptoms was February 27, 2022. 09:09 Method Of Arrival: Ambulatory ss 09:09 Acuity: BRITTNEY 3 ss Historical: - Allergies: 09:11 No Known Allergies; ss - PMHx: 09:11 Anxiety; Chronic pain; Hypertension; muscle spasms; osteomyelitis; Seizures; T5 injury; ss - Immunization history:: Client reports receiving the 1st dose of the Covid vaccine. - Social history:: Smoking status: Patient reports the use of cigarette tobacco products, denies chronic smoking, but will smoke occasionally. Screenin:24 Abuse screen: Denies threats or abuse. Denies injuries from another. Nutritional ss screening: No deficits noted. Tuberculosis screening: Never had TB. Fall Risk None identified. Assessment: 10:45 General: Appears in no apparent distress. comfortable, Behavior is calm, cooperative, ss Denies fever, feeling ill, fatigue, chills. Neuro: Level of Consciousness is awake, alert, obeys commands. Cardiovascular: Capillary refill < 3 seconds is brisk in bilateral fingers. Respiratory: Airway is patent Respiratory effort is even, unlabored, Respiratory pattern is regular, symmetrical. : Reports Self Caths Denies burning with urination. Derm: Skin is pink, warm \T\ dry. Musculoskeletal: Circulation, motion, and sensation intact. Range of motion: intact in all extremities, Swelling absent. 12:24 Reassessment: Patient appears in no apparent distress at this time. Patient and/or ss family updated on plan of care and expected duration. Pain level reassessed. Patient is alert, oriented x 3, equal unlabored respirations, skin warm/dry/pink. PT denies pain at this time. PT is eating crackers and drinking diet sprite to see if he can tolerate PO. Vital Signs: 09:09 Pulse 92; Resp 17; Temp 97.9(TE); Pulse Ox 100% on R/A; Weight 117.93 kg; Height 5 ft. ss 7 in. (170.18 cm); Pain 8/10; 09:12 BP 130 / 78; ss 09:09 Body Mass Index 40.72 (117.93 kg, 170.18 cm) ED Course: 08:54 Patient arrived in ED. mr 08:54 Dominique Carlisle is Private Physician. mr 08:56 [facility]ph[facility] Vidal F[facility] jh7 08:56 Paige Gordon MD is Attending Physician. jh7 09:11 Triage completed. ss 09:11 Arm band placed on right wrist. ss 09:38 Inserted saline lock: 22 gauge in right antecubital area, using aseptic technique. mb7 Blood collected. 09:38 CBC with Diff Sent. mb7 09:38 CMP Sent. mb7 09:38 Lipase Sent. mb7 09:38 Urine Microscopic Only Sent. mb7 09:48 CT Abd/Pelvis - IV Contrast Only In Process Unspecified. EDMS 10:41 Mireya Mcintyre, RN is Primary Nurse. ss 12:24 Patient has correct armband on for positive identification. Bed in low position. ss 12:24 No provider procedures requiring assistance completed. ss 12:51 IV discontinued, intact, bleeding controlled, No redness/swelling at site. Pressure ss dressing applied. Administered Medications: 10:56 Drug: Zofran (Ondansetron) 4 mg Route: IVP; Site: right antecubital; ss 11:38 Follow up: Response: No adverse reaction; Nausea is decreased ss 10:58 Drug: Pepcid (famotidine) 20 mg Route: IVP; Site: right antecubital; 11:38 Follow up: Response: No adverse reaction 11:00 Drug: NS 0.9% 1000 ml Route: IV; Rate: 1 bolus; Site: right antecubital; ss 12:58 Follow up: IV Status: Completed infusion; IV Intake: 1000ml 11:37 Drug: Rocephin (cefTRIAXone) 1 grams Route: IV; Rate: 1 calculated rate; Site: right ss antecubital; 12:07 Follow up: IV Status: Completed infusion ss Medication: 12:24 VIS not applicable for this client. ss Intake: 12:58 IV: 1000ml; Total: 1000ml. Outcome: 11:54 Discharge ordered by MD. irizarry 12:51 Discharged to home ambulatory. 12:51 Condition: good 12:51 Discharge instructions given to patient, Instructed on discharge instructions, follow up and referral plans. medication usage, Demonstrated understanding of instructions, follow-up care, medications. 12:58 Patient left the ED. Signatures: Dispatcher [employer] Orly Carvajal Shelby, RN RN Orly Joseph Jennifer, FNP FNP 7
--- NOTE | 2022-03-02 11:54 | EDPHYS ---
Physician Documentation [facility] Name: Rusty Han Age: 36 yrs Sex: Male : 1985 Arrival Date: 03/02/2022 Time: 08:54 Bed Treatment Private MD: Dominique Carlisle ED Physician Paige Gordon HPI: 03/02 09:15 This 36 yrs old Male presents to ER via Ambulatory with complaints of Vomiting.jh7 09:15 The patient presents to the emergency department with nausea, vomiting, abdominal pain. jh7 Onset: The symptoms/episode began/occurred 3 day(s) ago. Patient complains of nausea and vomiting for the past 3 to 4 days. Reports that he cannot hold any food down. States that he usually vomits about 30 minutes after attempting to eat. Denies diarrhea, but states that he has not had a bowel movement in the past 2 days. Reports mild diffuse abdominal pain as well. Denies fever. 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 Historical: - Allergies: 09:11 No Known Allergies; ss - PMHx: 09:11 Anxiety; Chronic pain; Hypertension; muscle spasms; osteomyelitis; Seizures; T5 injury; ss - Immunization history:: Client reports receiving the 1st dose of the Covid vaccine. - Social history:: Smoking status: Patient reports the use of cigarette tobacco products, denies chronic smoking, but will smoke occasionally. ROS: 09:15 Constitutional: Negative for fever, chills, and weight loss, ENT: Negative for injury, jh7 pain, and discharge, Neck: Negative for injury, pain, and swelling, Cardiovascular: Negative for chest pain, palpitations, and edema, Respiratory: Negative for shortness of breath, cough, wheezing, and pleuritic chest pain, Back: Negative for injury and pain, MS/Extremity: Negative for injury and deformity, Skin: Negative for injury, rash, and discoloration, Neuro: Negative for headache, weakness, numbness, tingling, and seizure. 09:15 Abdomen/GI: Positive for abdominal pain, nausea and vomiting, Negative for diarrhea, black/tarry stool. 09:15 All other systems are negative. Exam: 09:15 Constitutional: This is a well developed, well nourished patient who is awake, alert, jh7 and in no acute distress. ENT: Nares patent. No nasal discharge, no septal abnormalities noted. Tympanic membranes are normal and external auditory canals are clear. Oropharynx with no redness, swelling, or masses, exudates, or evidence of obstruction, uvula midline. Mucous membranes moist. Neck: Trachea midline, no thyromegaly or masses palpated, and no cervical lymphadenopathy. Supple, full range of motion without nuchal rigidity, or vertebral point tenderness. No Meningismus. Cardiovascular: Regular rate and rhythm with a normal S1 and S2. No gallops, murmurs, or rubs. Normal PMI, no JVD. No pulse deficits. Respiratory: Lungs have equal breath sounds bilaterally, clear to auscultation and percussion. No rales, rhonchi or wheezes noted. No increased work of breathing, no retractions or nasal flaring. Back: No spinal tenderness. No costovertebral tenderness. Full range of motion. Skin: Warm, dry with normal turgor. Normal color with no rashes, no lesions, and no evidence of cellulitis. MS/ Extremity: Pulses equal, no cyanosis. Neurovascular intact. Full, normal range of motion. Neuro: Awake and alert, GCS 15, oriented to person, place, time, and situation. Motor strength 5/5 in all extremities. Sensory grossly intact. Normal gait. 09:15 Abdomen/GI: Inspection: abdomen appears normal, Bowel sounds: normal, Palpation: soft, mild abdominal tenderness, in the abdomen diffusely. Vital Signs: 09:09 Pulse 92; Resp 17; Temp 97.9(TE); Pulse Ox 100% on R/A; Weight 117.93 kg; Height 5 ft. ss 7 in. (170.18 cm); Pain 8/10; 09:12 BP 130 / 78; ss 09:09 Body Mass Index 40.72 (117.93 kg, 170.18 cm) MDM: 10:[address] [facility] 11:52 Differential diagnosis: Nonspecific abd pain, gastritis, cholecystitis, pancreatitis, jh7 viral gastroenteritis, UTI, pyelonephritis. Data reviewed: vital signs, nurses notes, lab test result(s), radiologic studies, CT scan. Data interpreted: Pulse oximetry: is 100 %. Interpretation: normal. Counseling: I had a detailed discussion with the patient and/or guardian regarding: the historical points, exam findings, and any diagnostic results supporting the discharge/admit diagnosis, to return to the emergency department if symptoms worsen or persist or if there are any questions or concerns that arise at home. Response to treatment: the patient's symptoms have resolved after treatment. Special discussion: Based on the patient's Hx, exam, and Dx evaluation, there is no indication for emergent surgery or inpatient Tx. It is understood by the patient/guardian that if the Sx's persist or worsen they need to return immediately for re-evaluation. 03/02 09:05 Order name: CBC with Diff; Complete Time: 10:32 [facility] 03/02 09:05 Order name: CMP; Complete Time: 10:32 [facility] 03/02 09:05 Order name: Lipase; Complete Time: 10:32 [facility] 03/02 09:05 Order name: Urine Microscopic Only; Complete Time: 11:33 [facility] 03/02 10:58 Order name: Urine Dipstick-Ancillary; Complete Time: 11:05 [facility] 03/02 11:20 Order name: Urine Culture [facility] 03/02 09:05 Order name: CT Abd/Pelvis - IV Contrast Only; Complete Time: 10:32 [facility] 03/02 09:05 Order name: IV Saline Lock; Complete Time: 09:36 [facility] 03/02 09:05 Order name: Labs collected and sent; Complete Time: 09:38 [facility] 03/02 09:05 Order name: Urine Dipstick-Ancillary (obtain specimen); Complete Time: 11:00 [facility] 03/02 11:44 Order name: PO challenge; Complete Time: 12:24 [facility] Administered Medications: 10:56 Drug: Zofran (Ondansetron) 4 mg Route: IVP; Site: right antecubital; ss 11:38 Follow up: Response: No adverse reaction; Nausea is decreased ss 10:58 Drug: Pepcid (famotidine) 20 mg Route: IVP; Site: right antecubital; ss 11:38 Follow up: Response: No adverse reaction ss 11:00 Drug: NS 0.9% 1000 ml Route: IV; Rate: 1 bolus; Site: right antecubital; ss 12:58 Follow up: IV Status: Completed infusion; IV Intake: 1000ml ss 11:37 Drug: Rocephin (cefTRIAXone) 1 grams Route: IV; Rate: 1 calculated rate; Site: right ss antecubital; 12:07 Follow up: IV Status: Completed infusion ss Disposition: 15:28 Co-signature as Attending Physician, Paige Gordon MD STAFF ATTESTATION STATEMENT I sd2 was immediately available on-site in the Emergency Department for consultation in the care of the patient. Paige Gordon MD. Disposition Summary: 03/02/22 11:54 Discharge Ordered Location: Home [facility] Problem: [facility] Symptoms: have improved [facility] Condition: Stable [facility] Diagnosis - UTI/ Urinary tract infection, site not specified jh7 - Nausea with vomiting, unspecified [facility] Followup: [facility] - With: Private Physician - When: 2 - 3 days - Reason: Recheck today's complaints Discharge Instructions: - Discharge Summary Sheet [facility] - Nausea, Adult jh7 - Urinary Tract Infection, Adult [facility] Forms: - Medication Reconciliation Form [facility] - Thank You Letter [facility] - Antibiotic Education [facility] Prescriptions: - ondansetron 4 mg Oral tablet,disintegrating - place 1 tablet by TRANSLINGUAL route 4 times per day As needed; 20 tablet; [facility] Refills: 0, Product Selection Permitted - Cipro 500 mg Oral Tablet - take 1 tablet by ORAL route every 12 hours for 10 days; 20 tablet; Refills: 0, [facility] Product Selection Permitted Signatures: Dispatcher [employer] Mireya Nelson RN RN Stephany Gordon, METAL REED TUNER MET[employer] REED TUNER Paige Angelo MD MD sd2 Corrections: (The following items were deleted from the chart) 11:52 09:15 Patient complains of nausea and vomiting for the past 3 to 4 days. Reports that jh he cannot hold any food down. States that he usually vomits about 30 minutes after attempting to eat. Denies diarrhea, but states that he has not had a bowel movement in the past 2 days. Reports mild diffuse abdominal pain as well. Denies fever.. [facility]
[2022-03-02 13:10] VITALS: TEMP 97.9; O2SAT 100
[2022-03-02 13:15] VITALS: BP 130/78
== END 2022-03-02 12:58 | disposition home or self-care (01) ==
LOC: ER 08:51
DX: N39.0 Urinary tract infection, site not specified (principal); I10 Essential (primary) hypertension; F17.210 Nicotine dependence, cigarettes, uncomplicated
CPT/HCPCS: 96365; 96361; 87088; 85025; 87086; 36415; 83690; 80053; 74177; 96375; 99284; Q9967; J7030; J2405; J3490; 81003; 81015

== ENCOUNTER 2022-09-24 12:13 | Emergency (ER) | payer OTHER ==
--- OUTSIDE RECORDS SUMMARY | 2022-09-24 12:17 | XMS REPORT | Continuity of Care Document ---
:1985 Author Organization [facility] t Address [address] [place] [address] Dr. Cartwright. [address] [place] [address] Care Team Providers Name Role Phone Alex England Primary Care Physician Madalyn Bernard MD Attending Clinician Payers Payer Name Policy Type Policy Number Effective Date Expiration Date S ource Problems Condition Condition Condition Status Onset Resolution Last Treating Co mments Source Name Details Category Date Date Treatment Clinician Date YASMANY (acute YASMANY (acute Disease Active U nivers kidney kidney 1-30 ity of injury) injury) 00:00: [address] Branch Cellulitis Cellulitis Disease Active U nivers of right of right 1-30 ity of foot foot 00:00: [address] Branch Acute Acute Disease Active Univers osteomyeli osteomyeli 1-27 it y of tis of tis of 00:00: [place] right right 00 [facility] calcaneus calcaneus Bran ch Septic Septic Disease Active Univers arthritis arthritis 1-27 ity of of right of right 00:00: [place] ankle ankle 00 [facility] Branch Elevated Elevated Disease Active Unive rs sed rate sed rate 1-27 ity of 00:00: [address] Obesity Obesity Disease Active Univers (BMI (BMI 1-25 ity of 30-39.9) 30-39.9) 00:00: [address] Chronic Chronic Disease Active Univers refractory refractory 1-24 it y of osteomyeli osteomyeli [place] tis of 00 Medical foot, foot, Branch right right Erectile Erectile Disease Active 2012-08 Unive rs dysfunctio dysfunctio 2- it y of n n 00:00: [place] 00 Medical Branch TBI TBI Disease Active 2012-08 Univers (traumatic (traumatic 09-30 it y of brain brain 00:00: [place] injury) injury) 00 Medical Branch Abnormal [facility]-27 [facility] of gain gain 00:00: [place] [facility] Infertilit Infertilit Disease Active 2012-08 U nivers y male y male 2 ity of 00:00: [place] 00 Medical Branch Urinary Urinary Disease Active Overview: [facility] incontinen incontinen 02-24 Formattin ity of ce without ce without 00:00: g of this [place] sensory sensory 00 note Medical awareness awareness might be Br anch different from the original. 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 ICD10 Diagnosis Term [employer] Wound Wound Disease Active Univers infection infection 02-21 ity of 00:00: [place] 00 Medical Branch PARESTHESI PARESTHESI Disease Active U nivers A A 3-03 ity of 00:00: [place] 00 Medical Branch Essential Essential Disease Active Overview: Univers hypertensi hypertensi 6-11 Formattin ity of on on 00:00: g of this 00 note Medical might be Branch different from the original. ICD10 Diagnosis Term [employer] Anxiety Anxiety Disease Active Overview: [facility] state state -11 Formattin ity of 00:00: g of this note Medical might be Branch different from the original. ICD10 Diagnosis Term [employer] Paraplegia Paraplegia Disease Active U nivers 7-20 ity of 00:00: [place] 00 Medical Branch Allergies, Adverse Reactions, Alerts Allergy Allergy Status Severity Reaction(s) Onset Inactive Treating Comm ents Source Name Type Date Date Clinician NO KNOWN Drug Active Univers ALLERGIE Class ity of S [place] [facility] Social History Social Habit Start Date Stop Date Quantity Comments Source History of Cigarette Smoker Universi ty of tobacco use [place] [facility] History SDOH University o f Alcohol Frequency [place] M edical Branch History SDOH University o f Alcohol Std [place] Medical Drinks Branch History SDOH University o f Alcohol Binge [facility] al Branch Exposure to Not sure University of SARS-CoV-2 [place] Medical (event) Branch Alcohol intake 2021-05-03 2021-05-03 Current drinker of Un iversity of 00:00:00 00:00:00 [facility] 2013-07-30 2013-07-30 University of pack-years 00:00:00 00:00:00 [facility] Tobacco use and 2013-07-30 2013-07-30 Never used Universit y of exposure 00:00:00 00:00:00 [facility] Alcohol Comment 2013-07-30 2013-07-30 presently sober, Uni versity of 00:00:00 00:00:00 [facility] Cig[facility] smoked 2013-07-30 2013-07-30 Univers ity of current (pack per 00:00:00 00:00:00 [facility] ) - Reported Branch Sex Ass[birth year] At [birth year] Universit y of 00:00:00 00:00:00 [facility] Smoking Status Start Date Stop Date Source Current every day smoker 2013-07-30 00:00:00 Uni versity of [facility] Medications Ordered Filled Start Stop Current Ordering Indication Dosage Frequency Signature Comments Components Source Medication Medication Date Date Medication? Clinician (SIG) Name Name ondansetron 2020- No 4mg 4 mg, Slow Univers (ZOFRAN 05-03 IV Push, ity of (PF)) 12:30: 11:22 ONCE, 1 [place] injection 4 00 :00 dose, On Medi matt mg [facility] Branch 05/03/21 at 0730, LEESA morpHINE 2020- No 4mg 4 mg, Slow Un shamar injection 4 05-03 IV Push, ity of mg 12:30: 11:22 ONCE, 1 [place] 00 :00 dose, On Medical Meghan Branch 05/03/21 at 0730, STAT sodium Yes 5mL 5 mL, Univers chloride 05-03 Intravenou ity o f (NS) 10:49: s, PRN, [place] injection 5 08 Starting Medi matt mL on Meghan Branch 05/03/21 at 0549, Until Discontinu ed, Routine, IV line flushing acetaminoph 2017-0 Yes 650mg Take 2 Uni vers en 325 mg 2-05 tablets by ity of tablet 00:00: mouth [place] 00 every 6 Medical (six) Branch hours as needed for Pain (scale 1-3), Pain (scale 4-6) or Temp > 38.5 C. levETIRAcet 2017-0 Yes 1000mg Take 1 Un shamar am 1,000 mg 2-05 tablet by ity of tablet 00:00: mouth (two) Medical times Branch daily. metoprolol 2017-0 Yes 50mg Take 1 Unive rs tartrate 50 2-05 tablet by ity of mg tablet 00:00: mouth (two) Medical times Branch daily. EUCERIN 2017- Yes Apply to Univer s cream 2-05 area(s) 2 ity of 00:00: (two) times Medical daily. Branch docusate 0 Yes 100mg Take 1 Univer s 100 mg 2-05 capsule by ity of capsule 00:00: mouth (two) Medical times Branch daily. acetaminoph Yes 1{tbl} Take 1 Un shamar en-codeine 2-05 tablet by ity of 300-30 mg 00:00: mouth [place] tablet 00 every 6 Medical (six) Branch hours as needed for Pain (scale 7-10). aspirin 81 2017-0 Yes 81mg Take 1 Unive rs mg chewable 2-05 tablet by ity of tablet 00:00: mouth 00 daily. Medical Branch levoFLOXaci 0 Yes 500mg Take 1 Uni vers n 500 mg 2-05 tablet by ity of tablet 00:00: mouth [place] 00 every 24 Medical (twenty-fo Branch ur) hours.X 3 MOS.HG nortriptyli 0 Yes 75mg Take 1 Univ ers ne 75 mg 2-05 capsule by ity o f capsule 00:00: mouth (two) Medical times Branch daily. Vital Signs Vital Name Observation Time Observation Value Comments Source Systolic blood 2021-05-03 14:00:00 150 mm[Hg] Univer sity of pressure [facility] Diastolic blood 2021-05-03 14:00:00 113 mm[Hg] Unive rsity of pressure [facility] Heart rate 2021-05-03 14:00:00 107 /min [facility] Respiratory rate 2021-05-03 14:00:00 23 /min [facility] Oxygen saturation in 2021-05-03 14:00:00 96 /min [facility] Arterial blood by [facility] Pulse oximetry [place] Body temperature 2021-05-03 10:40:00 36.5 Patricia [facility] Body height 2021-05-03 10:40:00 170.2 cm [facility] Body weight 2021-05-03 10:40:00 81.647 kg [facility] BMI 2021-05-03 10:40:00 28.19 kg/m2 [facility] Procedures Procedure Date / Time Performing Clinician Source Performed TROPONIN I 2021-05-03 12:29:00 Madalyn Bernard [facility] EKG-12 LEAD 2021-05-03 12:19:52 Madalyn Bernard [facility] XR CHEST 1 VW 2021-05-03 11:02:10 Madalyn Bernard [facility] LIPASE 2021-05-03 10:50:00 Madalyn Bernard [facility] TROPONIN I 2021-05-03 10:50:00 Madalyn Bernard [facility] COMP. METABOLIC PANEL 2021-05-03 10:50:00 Madalyn Bernard [facility] ([id number]) [facility] CBC WITH DIFF 2021-05-03 10:50:00 Madalyn Bernard [facility] PROTHROMBIN TIME / INR 2021-05-03 10:50:00 Madalyn Bernard [facility] ACTIVATED PARTIAL 2021-05-03 10:50:00 Madalyn Bernard [facility] Encounters Start End Encounter Admission Attending Care Care Encounter Source Date/Time Date/Time Type Type Clinicians Facility Department ID 2021-06-05 Emergency [facility] [id number] Univers 02:34:14 ity [facility] 2021-05-03 2021-05-03 Emergency CYNDI Bernard [id number] Univers 05:45:00 09:21:00 Madalyn Bazan [id number] itDung [id number] [facility] [id number] [place] [id number] Branch Results Test Description Test Time Test Comments Results Result Comments Source TROPONIN I 2021-05-03 13:34:14 Test Item Value Reference Range Interpretation Comme nts TROPONIN I (test code = 0.003 ng/mL See_Comment [Au tomated message] The 7475195745) system which ge nerated this result tra nsmitted reference range : <=0.034. The reference r placido was not used to int erpret this result as normal/abnormal . TED (test code = TED) Reference (Normal) Range (defined by the 99th percentile reference limit): <= 0.034 ng/mL Note: Cardiac troponin begins to rise 3-4 hours after the onset of ischemia. Repeat in 4-6 hours if the sample was drawn within 3-4 hours of the onset of the symptom and found normal. Diagnosis of myocardial injury is made with acute changes in cTn concentrations with at least one serial sample above the 99th percentile upper reference limit (URL), taken together with the patient's clinical presentation. Biotin has been reported to cause a negative bias, interpret results relative to patient's use of biotin. Lab Interpretation Normal (test code = 68409-2) [facility] [id number] 11:25:27 Test Item Value Reference Interpretation Comments Range TROPONIN I (test 0.002 ng/mL See_Comment [Automated code = 0686353558) message] The system which generated this result transmitted reference range : <=0.034. The reference range was not used to interpret this result as normal/abnormal . TED (test code = Reference (Normal) TED) Range (defined by the 99th percentile reference limit): <= 0.034 ng/mL Note: Cardiac troponin begins to rise 3-4 hours after the onset of ischemia. Repeat in 4-6 hours if the sample was drawn within 3-4 hours of the onset of the symptom and found normal. Diagnosis of myocardial injury is made with acute changes in cTn concentrations with at least one serial sample above the 99th percentile upper reference limit (URL), taken together with the patient's clinical presentation. Biotin has been reported to cause a negative bias, interpret results relative to patient's use of biotin. Lab Interpretation Normal (test code = 44471-6) [facility]. METABOLIC PANEL (30047)2021-05-03 11:14:20 Test Item Value Reference Range Interpretation Comments NA (test code = 141 mmol/L 135-145 3829803332) K (test code = 3.6 mmol/L 3.5-5.0 7867834706) CL (test code = 102 mmol/L 98-108 4668775791) CO2 TOTAL (test code = 31 mmol/L 23-31 8326692323) AGAP (test code = 2-16 1693343839) BUN (test code = 18 mg/dL 7-23 5860006669) GLUCOSE (test code = 120 mg/dL 70-110 H 4000327217) CREATININE (test code = 0.87 mg/dL 0.60-1.25 0251938410) TOTAL BILI (test code = 1.0 mg/dL 0.1-1.7 8875639986) CALCIUM (test code = 9.9 mg/dL 8.6-10.6 6995527830) T PROTEIN (test code = 8.6 g/dL 6.3-8.2 H 8899367178) ALBUMIN (test code = 4.6 g/dL 3.5-5.0 6973357952) ALK PHOS (test code = 59 U/L 34-122 9596259619) ALTv (test code = 8 U/L 5-50 1742-6) AST(SGOT) (test code = 22 U/L 13-40 9487277952) eGFR (test code = mL/min/1.73m2 2587611269) TED (test code = TED) Association of Glomerular Filtration Rate (GFR) and Staging of Kidney Disease* + --+ --+ ------+| GFR (mL/min/1.73 m2) ?| With Kidney Damage ?| ?Without Kidney Damage+ --------+ --------+ +| ?>90 ?| ?Stage one ?| ? Normal ?+ ---+ ---+ -------+| ?60-89 ?| ?Stage two ?| ? Decreased GFR ? + --+ --+ ------+| ?30-59 ?| ?Stage three ?| ? Stage three ? + --+ --+ ------+| ?15-29 ?| ?Stage four ? | ? Stage four ?+ ---+ ---+ -------+| ?<15 (or dialysis) ? ?| ?Stage five ? | ? Stage five ?+ ---+ ---+ -------+ *Each stage assumes the associated GFR level has been in effect for at least three months. ?Stages 1 to 5, with or without kidney disease, indicate chronic kidney disease. Notes: Determination of stages one and two (with eGFR >59mL/min/1.73 m2) requires estimation of kidney damage for at least three months as defined by structural or functional abnormalities of the kidney, manifested by either:Pathological abnormalities or Markers of kidney damage (including abnormalities in the composition of the blood or urine or abnormalities in imaging tests). Lab Interpretation Abnormal (test code = 54207-9) [facility] [id number] 11:13:45 Test Item Value Reference Range Interpretation Comments LIPASE (test code = 8030681004) 67 U/L 0-220 Lab Interpretation (test code = Normal 71133-9) [facility] 11:06:41 Test Item Value Reference Range Interpretation Comments APTT Patient (test See_Comment [Automat ed code = 3173-2) message] The system which generated this result transmitted reference range : 23 - 38 Seconds . The reference range was not used to interpr et this result as normal/abnormal . TED (test code = TED) The [facility] patient population mean normal value for aPTT is 30 seconds. Lab Interpretation Normal (test code = 52756-7) [facility] / [id number] 11:04:22 Test Item Value Reference Range Interpretation Comments PROTIME PATIENT (test See_Comment [Auto mated message] code = 5964-2) The system wh ich generated this result transmitted ref erence range: 12.0 - 1 4.7 Seconds. The re ference range was not u sed to interpret this result as normal/abnor mal. INR (test code = 6301-6) Nor mal INR <1.1; Warfarin Therap eutic range 2.0 to 3. 0 or 2.5 to 3.5, dep ending upon the indica tions. Lab Interpretation (test Normal code = 95335-3) [facility] WITH [id number] 10:57:38 Test Item Value Reference Range Interpretation Comments WBC (test code = See_Comment [Automated 6690-2) message] The sy stem which generated this result transmitted reference range : 4.20 - 10.70 10*3/?L. The reference range was not used to interpret this result as normal/abnormal . RBC (test code = See_Comment H [Automated 789-8) message] The sy stem which generated this result transmitted reference range : 4.26 - 5.52 10*6/?L. The reference range was not used to interpret this result as normal/abnormal . HGB (test code = 15.9 g/dL 12.2-16.4 718-7) HCT (test code = 47.7 % 38.4-49.3 4544-3) MCV (test code = 83.1 fL 81.7-95.6 787-2) MCH (test code = 27.7 pg 26.1-32.7 785-6) MCHC (test code = 33.3 g/dL 31.2-35.0 786-4) RDW-SD (test code = 45.4 fL 38.5-51.6 40341-1) RDW-CV (test code = 15.2 % 12.1-15.4 788-0) PLT (test code = See_Comment [Automated 777-3) message] The sy stem which generated this result transmitted reference range : 150 - 328 10*3/ ?L. The reference r placido was not used to interpret this result as normal/abnormal . MPV (test code = 8.8 fL 9.8-13.0 L 82816-0) NRBC/100 WBC (test See_Comment [Automat ed code = 5406805794) message] The system which generated this result transmitted reference range : 0.0 - 10.0 /100 WBCs. The refer ence range was not u sed to interpret th is result as normal/abnormal . NRBC x10^3 (test code <0.01 See_Comment [Auto mated = 1383912962) message] The s ystem which generated this result transmitted reference range : 10*3/?L. The reference range was not used to interpret this result as normal/abnormal . GRAN MAT (NEUT) % 58.1 % (test code = 770-8) IMM GRAN % (test code 0.30 % = 6573394130) LYMPH % (test code = 31.7 % 736-9) MONO % (test code = 7.3 % 5905-5) EOS % (test code = 2.2 % 713-8) BASO % (test code = 0.4 % 706-2) GRAN MAT x10^3(ANC) 4.04 10*3/uL 1.99-6.95 (test code = 2268665580) IMM GRAN x10^3 (test <0.03 0.00-0.06 code = 2831349720) LYMPH x10^3 (test code 2.20 10*3/uL 1.09-3.23 = 731-0) MONO x10^3 (test code 0.51 10*3/uL 0.36-1.02 = 742-7) EOS x10^3 (test code = 0.15 10*3/uL 0.06-0.53 711-2) BASO x10^3 (test code 0.03 10*3/uL 0.01-0.09 = 704-7) Lab Interpretation Abnormal (test code = 95363-3) [facility]"
--- NOTE | 2022-09-24 13:37 | RAD REPORT ---
EXAM DESCRIPTION: [place] Single View09/24/2022 1:19 pm CLINICAL HISTORY: cough, fever, sob COMPARISON: Chest Single View dated 03/06/2019; CHEST SINGLE VIEW dated 10/05/2015; CHEST SINGLE VIEW da scarlet 04/15/2015; CHEST SINGLE VIEW dated 03/07/2015 TECHNIQUE: Portable AP view of the chest. FINDINGS: The lungs are clear. No pneumothorax or effusion. The cardiomediastinal contours are unrem arkable. IMPRESSION: No acute cardiopulmonary process.
[2022-09-24 14:48] LABS: SARS-COV-2 RT PCR NEGATIVE (NEGATIVE)
--- NOTE | 2022-09-24 14:55 | EDPHYS ---
Physician Documentation [facility] Name: Rusty Han Age: 37 yrs Sex: Male : 1985 Arrival Date: 09/24/2022 Time: 12:15 Bed 7 Private MD: ED Physician Charles Milligan HPI: 09/24 12:26 This 37 yrs old Male presents to ER via Ambulatory with complaints of Flu jmm Symptoms. 12:26 The patient or guardian reports cough. Onset: The symptoms/episode began/occurred jmm gradually. Modifying factors: The symptoms are alleviated by nothing. the symptoms are aggravated by nothing. Associated signs and symptoms: Pertinent positives: fever. Is a 37-year-old male with history of chronic pain, anxiety, hypertension the presents emerged part with complaints of cough and fever which has been ongoing for the past week. Patient is currently taking oral antibiotics and was diagnosed with pneumonia. Denies vomiting.. 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 - Social history:: Smoking status: Patient reports the use of cigarette tobacco products, cigars. ROS: 12:26 Constitutional: Positive for body aches, fever. jmm 12:26 Respiratory: Positive for cough. 12:26 All other systems are negative. Exam: 12:26 Constitutional: This is a well developed, well nourished patient who is awake, alert, jmm and in no acute distress. Head/Face: atraumatic. Eyes: EOMI, no conjunctival erythema appreciated ENT: Moist Mucus Membranes Neck: Trachea midline, Supple Chest/axilla: Normal chest wall appearance and motion. Cardiovascular: Regular rate and rhythm. No edema appreciated Respiratory: Normal respirations, no respiratory distress appreciated Abdomen/GI: Non distended Back: Normal ROM Skin: General appearance color normal MS/ Extremity: Moves all extremities, no obvious deformities appreciated, no edema noted to the lower extremities Neuro: Awake and alert Psych: Behavior is normal, Mood is normal, Patient is cooperative and pleasant Vital Signs: 12:26 BP 149 / 99; Pulse 120; Resp 19; Temp 99.7; Pulse Ox 97% ; Weight 120.2 kg; Height 5 ap3 ft. 7 in. (170.18 cm); 14:07 BP 149 / 87; Pulse 110; Resp 20; Pulse Ox 98% ; bp 12:26 Body Mass Index 41.50 (120.20 kg, 170.18 cm) ap3 MDM: 12:26 Patient medically screened. [facility] 14:54 Data reviewed: vital signs, nurses notes. [facility] 17:20 Data reviewed: vital signs. Independent interpretation of the following test(s) in the [facility] Emergency Department X-Ray: My interpretation is No infiltrate appreciated. Counseling: I had a detailed discussion with the patient and/or guardian regarding: the historical points, exam findings, and any diagnostic results supporting the discharge/admit diagnosis, radiology results, the need for outpatient follow up, to return to the emergency department if symptoms worsen or persist or if there are any questions or concerns that arise at home. ED course: Patient is alert nontoxic in appearance in the ED. Pneumonia was not appreciated on chest x-ray. Patient encouraged to continue oral antibiotics and advised to follow with PCP. Patient will follow with his PCP tomorrow morning. Patient otherwise given strict return precautions. Patient understood agrees plan of care peer. 09/24 12:28 Order name: COVID-19/FLU A+B [facility] 09/24 14:48 Order name: COVID-19/FLU A+B; Complete Time: 14:51 EDMS 09/24 12:28 Order name: Chest Single View XRAY [facility] 09/24 13:38 Order name: RAD; Complete Time: 13:40 EDMS Administered Medications: No medications were administered Disposition: 15:52 Co-signature as Attending Physician, Charles Milligan MD I reviewed the patient's care rn provided by the Advanced Practice Provider and agree with the diagnosis and treatment plan. Disposition Summary: 09/24/22 14:55 Discharge Ordered Location: Home [facility] Condition: Stable [facility] Diagnosis - Cough [facility] Followup: [facility] - With: Private Physician - When: 2 - 3 days - Reason: Recheck today's complaints, Continuance of care, Re-evaluation by your physician Discharge Instructions: - Discharge Summary Sheet [facility] - Cough, Adult [facility] Forms: - Medication Reconciliation Form [facility] - Thank You Letter brijesh - Antibiotic Education brijesh - Prescription Opioid Use [facility] Prescriptions: - Diclofenac Sodium 75 mg Oral Tablet Sustained Release - take 1 tablet by ORAL route 2 times per day; 30 tablet; Refills: 0, Product [facility] Selection Permitted - Zithromax Z-Bam 250 mg Oral Tablet - take 1 tablet by ORAL route as directed for 5 days Day 1 - take two (2) tablets [facility] one time. Day 2, 3, 4 , 5 take one (1) tablet once daily.; 6 tablet; Refills: 0, Product Selection Permitted - orphenadrine citrate 100 mg Oral Tablet Sustained Release - take 1 tablet by ORAL route 2 times per day As needed; 20 tablet; Refills: 0, [facility] Product Selection Permitted - albuterol sulfate 90 mcg/actuation Inhalation HFA aerosol inhaler - inhale 2 puff by INHALATION route every 4 hours; 1 Pump; Refills: 0, Product [facility] Selection Permitted Signatures: Dispatcher [employer] Roosevelt Arias PA PA jmm Nieto, Roman, MD MD rn Prokisch, Amanda, RN RN ap3 Corrections: (The following items were deleted from the chart) 12:30 12:28 Home Meds: metoprolol tartrate 50 mg Oral tab 1 tab 2 times per day; ap3 ap3
--- NOTE | 2022-09-24 14:55 | ER ---
Nurse's Notes [facility] Name: Rusty Han Age: 37 yrs Sex: Male : 1985 Arrival Date: 09/24/2022 Time: 12:15 Bed 7 Private MD: Diagnosis: Cough Presentation: 09/24 12:26 Chief complaint: Patient states: he has fever, body aches, cough and congestions for ap3 approx one week. patient was evaluated by his PCP last week, but reports his symptoms are getting worse. Coronavirus screen: At this time, the client does not indicate any symptoms associated with coronavirus-19. Ebola Screen: No symptoms or risks identified at this time. Initial Sepsis Screen: Does the patient meet any 2 criteria? HR > 90 bpm. Does the patient have a suspected source of infection? No. Patient's initial sepsis screen is negative. Risk Assessment: Do you want to hurt yourself or someone else? Patient reports no desire to harm self or others. Onset of symptoms was September 17, 2022. 12:26 Method Of Arrival: Ambulatory ap3 12:26 Acuity: BRITTNEY 3 ap3 Triage Assessment: 12:30 General: Appears uncomfortable, Behavior is calm, cooperative, appropriate for age. ap3 Pain: Denies pain. Neuro: Level of Consciousness is awake, alert, obeys commands, Oriented to person, place, time, situation. Cardiovascular: Patient's skin is warm and dry. Respiratory: Reports shortness of breath cough that is. 12:31 Respiratory: Airway is patent Respiratory effort is even, unlabored, Respiratory ap3 pattern is regular, symmetrical. 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 - Social history:: Smoking status: Patient reports the use of cigarette tobacco products, cigars. Screenin:31 [facility] ED Fall Risk Assessment (Adult) History of falling in the last 3 months, ap3 including since admission No falls in past 3 months (0 pts). Abuse screen: Denies threats or abuse. Nutritional screening: No deficits noted. Tuberculosis screening: No symptoms or risk factors identified. Assessment: 12:30 General: SEE TRIAGE NOTE. bp 14:07 Reassessment: No changes from previously documented assessment. Patient and/or family bp updated on plan of care and expected duration. Pain level reassessed. Vital Signs: 12:26 BP 149 / 99; Pulse 120; Resp 19; Temp 99.7; Pulse Ox 97% ; Weight 120.2 kg; Height 5 ap3 ft. 7 in. (170.18 cm); 14:07 BP 149 / 87; Pulse 110; Resp 20; Pulse Ox 98% ; bp 12:26 Body Mass Index 41.50 (120.20 kg, 170.18 cm) ap3 ED Course: 12:15 Patient arrived in ED. rg4 12:16 Roosevelt Scott PA is PHCP. [facility] 12:16 Charles Milligan MD is Attending Physician. [facility] 12:28 Triage completed. ap3 12:31 Arm band placed on right wrist. ap3 13:24 Carmine Mcelroy, IZABELA is Primary Nurse. bp 13:24 COVID-19/FLU A+B Sent. bp 13:24 Chest Single View XRAY Sent. bp 14:08 Patient has correct armband on for positive identification. Bed in low position. Call bp light in reach. Side rails up X2. 15:15 No provider procedures requiring assistance completed. Patient did not have IV access eh3 during this emergency room visit. Administered Medications: No medications were administered Medication: 12:31 VIS not applicable for this client. ap3 Outcome: 14:55 Discharge ordered by . jm 15:15 Discharged to home ambulatory, with family. eh3 15:15 Discharged to home with significant other. 15:15 Condition: stable 15:15 Discharge instructions given to patient. 15:15 Discharge instructions given to Instructed on discharge instructions, follow up and referral plans. medication usage, Demonstrated understanding of instructions, follow-up care, medications, Prescriptions given X 4. 15:16 Patient left the ED. eh3 Signatures: Roosevelt Scott PA PA jmm Garcia, Rubi rg4 Carmine Mcelroy RN RN bp Senait Darden RN RN ap3 Sheyla Watkins RN RN eh3 Corrections: (The following items were deleted from the chart) 12:30 12:28 Home Meds: metoprolol tartrate 50 mg Oral tab 1 tab 2 times per day; ap3 ap3 14:14 14:07 Pulse 110bpm; Resp 20bpm; Pulse Ox 98%; bp bp
[2022-09-24 16:05] VITALS: TEMP 99.7
[2022-09-24 16:07] VITALS: BP 149/87; O2SAT 98
== END 2022-09-24 15:16 | disposition home or self-care (01) ==
LOC: ER 12:13
DX: R05.9 Cough, unspecified (principal); Z20.822 Contact with and (suspected) exposure to COVID-19; I10 Essential (primary) hypertension; F41.9 Anxiety disorder, unspecified; Z72.0 Tobacco use
CPT/HCPCS: 0240U; 71045

== ENCOUNTER 2024-10-05 06:15 | Emergency (ER) | payer OTHER ==
--- OUTSIDE RECORDS SUMMARY | 2024-10-05 06:19 | XMS REPORT | Continuity of Care Document ---
Author Name Unknown Address [address] [facility] [address] [place] [address] [facility] Address [address] [facility] [address] [place] [address] Care Team Providers Care Oiler And Greaser Name Role Phone NONE, NONE Primary Care Physician Unavailab BRAD Ferguson Attending Clinician Unavailable DR JV ROBERSON Attending Clinician Unavailable Madalyn Bernard MD Attending Clinician [facility], PHYSICIAN Attending Norma medina Unavailable DR JV ROBERSON Admitting Clinician Unavailable [facility], PHYSICIAN Admitting Norma n Unavailable Payers Payer Name Policy Type Policy Number Effective Date Expirati on Date Source [id number] 1960 00:00:00 Problems Condition Name Condition Details Condition Category Status Onset Date Resolution Date Last Treatment Date Treating Clinician Comments Source YAMSANY (acute kidney injury) YASMANY (acute kidney injury) Disease Active 09-02 00:00: 00 [facility] Cellulitis of right foot Cellulitis of right foot Disease Active 09-02 00:00: 00 [facility] Acute osteomyeli tis of right calcaneus Acute osteomyeli tis of right calcaneus Disease Active 08-30 00:00: 00 [facility] Septic arthritis of right ankle Septic arthritis of right ankle Disease Active 08-30 00:00: 00 [facility] Elevated sed rate Elevated sed rate Disease Active 08-30 00:00: 00 [facility] Obesity (BMI 30-39.9) Obesity (BMI 30-39.9) Disease Active 08-28 00:00: 00 [facility] Chronic refractory osteomyeli tis of foot, 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, right Disease Active 08-27 00:00: 00 [facility] Erectile dysfunctio n Erectile dysfunctio n Disease Active 2012-08 00:00: 00 [facility] TBI (traumatic brain injury) TBI (traumatic brain injury) Disease Active 2012-08 00:00: 00 [facility] Abnormal weight gain Abnormal weight gain Disease Active 2012-08 00:00: 00 [facility] Infertilit y male Infertilit y male Disease Active 2012-08 00:00: 00 [facility] Urinary incontinen ce without sensory awareness Urinary incontinen ce without sensory awareness Disease Active 02-24 00:00: 00 Overview: Formattin g of this note might be different from the original. ICD10 Diagnosis Term [employer] [facility] Neurogenic bladder Neurogenic bladder Disease Active 02-24 00:00: 00 Overview: Formattin g of this note might be different from the original. ICD10 Diagnosis Term [employer] [facility] Wound infection Wound infection Disease Active 02-21 00:00: 00 [facility] PARESTHESI A PARESTHESI A Disease Active 10-04 00:00: 00 [facility] Essential hypertensi on Essential hypertensi on Disease Active 01-12 00:00: 00 Overview: Formattin g of this note might be different from the original. ICD10 Diagnosis Term [employer] [facility] Anxiety state Anxiety state Disease Active 01-12 00:00: 00 Overview: Formattin g of this note might be different from the original. ICD10 Diagnosis Term [employer] [facility] Paraplegia Paraplegia Disease Active 02-20 00:00: 00 [facility] Allergies, Adverse Reactions, Alerts Allergy Name Allergy Type Status Severity Reaction(s) Onset Date Inactive Date Treating Clinician Comments Source No Known Allergie s DA Active [facility] NO KNOWN ALLERGIE S Drug Class Active [facility] Social History Social Habit Start Date Stop Date Quantity Comments Source History of tobacco use Cigarette Smoker [facility] History SDOH Alcohol Frequency [facility] History SDOH Alcohol Std Drinks [facility] History SDOH Alcohol Binge [facility] Exposure to SARS-CoV-2 (event) Not sure [facility] Alcohol intake 2021-05-03 00:00:00 2021-05-03 00:00:00 Current drinker of alcohol (finding) [facility] Cigarettes smoked current (pack per day) - Reported 2013-07-30 00:00:00 2013-07-30 00:00:00 [facility] Cigarette pack-years 2013-07-30 00:00:00 2013-07-30 00:00:00 [facility] Tobacco use and exposure 2013-07-30 00:00:00 2013-07-30 00:00:00 Never used [facility] Alcohol Comment 2013-07-30 00:00:00 2013-07-30 00:00:00 [facility] 1985 [facility]00 1985 00:00:00 [facility] Smoking Status Start Date Stop Date Source Current every day smoker 2013-07-30 00:00:00 [facility] Medications Ordered Medication Name Filled Medication Name Start Date Stop Date Current Medication? Ordering Clinician Indication Dosage Frequency Signature (SIG) Comments Components Source amoxicillin 500 mg capsule 09-17 00:00: 00 Yes 1mg Anibal Elizalde lisinopril 20 mg tablet 09-17 00:00: 00 Yes 1mg Anibal Elizalde tadalafil 20 mg tablet 08-30 00:00: 00 Yes mg Anibal Elizalde rosuvastati n 10 mg tablet 08-30 00:00: 00 Yes 1mg Anibal Elizalde Keppra 500 mg tablet 08-30 00:00: 00 Yes 1mg Anibal Elizalde amoxicillin 875 mg-akin currie clavulanate 125 mg tablet 2025-0 1-27 00:00: 00 Yes 1mg Anibal Elizalde tadalafil 20 mg tablet 1-14 00:00: 00 Yes mg Anibal Elizalde benzonatate 100 mg capsule 2023-08 1- 00:00: 00 Yes 12mg Anibal Elizalde Mucinex DM 30 mg-600 mg tablet,exte nded release 12 hr 2023-08- 00:00: 00 Yes 1mg Anibal Elizalde cefdinir 300 mg capsule 2023-08 00:00: 00 Yes 1mg Anibal Elizalde Mucinex DM 30 mg-600 mg tablet,exte nded release 12 hr 2023-08- 00:00: 00 Yes 1mg Anibal Elizalde cefdinir 300 mg capsule 2023-08 00:00: 00 Yes 1mg Anibal Elizalde rosuvastati n 10 mg tablet -16 00:00: 00 Yes 1mg Anibal Elizalde citalopram 10 mg tablet -13 00:00: 00 Yes 1mg Anibal Elizalde lisinopril 20 mg tablet -13 00:00: 00 Yes 1mg Anibal Elizalde Keppra 500 mg tablet 8-13 00:00: 00 Yes 1mg Anibal Elizalde Cialis 20 mg tablet -13 00:00: 00 Yes 1mg Anibal Elizalde citalopram 20 mg tablet -24 00:00: 00 Yes mg Anibal Elizalde lisinopril 20 mg tablet -24 00:00: 00 Yes mg Anibal Elizalde AMOXICILLIN 500 MG TABS -08 00:00: 00 Yes Anibal Elizalde ketorolac 10 mg tablet - 00:00: 00 Yes mg Anibal Elizalde TAKE 1 TABLET 1 HOUR BEFORE ACTIVITY NEEDED. 2022-08 00:00: 00 12-16 00:00 :00 No 20 Anibal Elizalde TAKE 2 TABLETS NOW THEN 1 TABLET EVERY 8 HOURS UNTIL TAKEN ORALLY 2022-08 00:00: 00 Yes Anibal Elizalde TAKE 1 TABLET TWICE DAILY DIRECTED. 2022-08 00:00: 00 Yes 500 Anibal Elizalde 1 TABLET PO 1 OR 2 TIMES A DAY FOR FOR ANXIETY OR PANIC- DO NOT DRIVE OR OPERATE HEAVY MACHINERY WITH THIS MEDICATION 2022-08 00:00: 00 Yes 25 Anibal Elizalde TAKE 1 TABLET TWICE DAILY WITH MEALS 2022-08 00:00: 00 Yes 625 Anibal Elizalde TAKE 1 TABLET DAILY. 2022-08 00:00: 00 Yes 20 Anibal Elizalde TAKE 1 TABLET DAILY. 2022-08 00:00: 00 Yes 20 Anibal Elizalde LEVETIRACET AM 500 MG TABS 2022-08 00:00: 00 Yes Anibal Elizalde TAKE 1 CAPSULE EVERY 8 HOURS. 2022-08 00:00: 00 12-16 00:00 :00 No 500 Anibal Elizalde LEVETIRACET AM 500 MG TABS 03-26 00:00: 00 Yes Anibal Elizalde TAKE 1 TABLET DAILY. 03-26 00:00: 00 12-16 00:00 :00 No 20 Anibal Elizalde 1 TABLET PO ONE OR 2 TIMES A DAY FOR ANXIETY OR PANIC 03-26 00:00: 00 12-16 00:00 :00 No 25 Anibal Elizalde TAKE 1 TABLET DAILY. 03-26 00:00: 00 12-16 00:00 :00 No 20 Anibal Elizalde TAKE 1 TABLET TWICE DAILY DIRECTED. 03-26 00:00: 00 12-16 00:00 :00 No 500 Anibal Elizalde APPLY SPARINGLY TO AFFECTED AREA(S) TWICE DAILY 03-26 00:00: 00 12-16 00:00 :00 No 2 Anibal Elizalde TAKE 1 TABLET TWICE DAILY, WITH MORNING AND EVENING MEAL 03-26 00:00: 00 12-16 00:00 :00 No 3125 Anibal Elizalde TAKE 1 TABLET BY MOUTH EVERY 8 HOURS NEEDED FOR MUSCLE SPASMS 24 00:00: 00 Yes Anibal Elizalde TAKE 1 TABLET DAILY. 12-16 00:00: 00 12-16 00:00 :00 No 20 Anibal Elizalde LEVETIRACET AM 500 MG TABS -08 00:00: 00 Yes Anibal Elizalde TAKE 1 TABLET BY MOUTH EVERY EIGHT HOURS NEEDED FOR PAIN DX:M86.172, M79.672 5-04 00:00: 00 Yes Anibal Elizalde TAKE ONE (1) TABLET(S) BY MOUTH EVERY EIGHT HOURS NEEDED. -04 00:00: 00 Yes Anibal Elizalde TAKE 1 TABLET (500 MG) BY ORAL ROUTE EVERY 24 HOURS-1X/DA Y WITH FOOD 3- 00:00: 00 Yes Anibal Elizalde AMOXICILLIN 500 MG - 00:00: 00 12-16 00:00 :00 No Anibal Elizalde TAKE 2 TABLETS BY MOUTH TODAY, THEN TAKE 1 TABLET DAILY FOR 4 DAYS - 00:00: 00 Yes Anibal Elizalde DICLOFENAC SODIUM DR 75 MG TBEC 09-24 00:00: 00 Yes Anibal Elizalde TAKE 1 TABLET BY MOUTH TWICE A DAY - 00:00: 00 Yes Anibal Elizalde TAKE 1 TABLET BY MOUTH AT BEDTIME 09-16 00:00: 00 Yes Anibal Elizalde CEFDINIR 300 MG 09-16 00:00: 00 Yes Anibal Elizalde INHALE 1 - 2 PUFFS BY MOUTH EVERY 4 HOURS NEEDED - 00:00: 00 Yes Anibal Elizalde TAKE 1 TABLET BY MOUTH TWICE A DAY 2021-08 00:00: 00 Yes Anibal Elizalde TAKE 1 TABLET BY MOUTH EVERY DAY DIRECTED 2021-08- 00:00: 00 Yes Anibal Elizalde TAKE 1 TABLET BY MOUTH TWICE A DAY FOR BLOOD PRESSURE GREATER THAN 140/90 2021-08 00:00: 00 12-16 00:00 :00 No Anibal Elizalde TAKE 1 TABLET BY MOUTH 3 TIMES DAILY 2021-08- 00:00: 00 Yes Anibal Elizalde METHYLPREDN ISOLONE DOSE PACK 4 MG TBPK 2021-08 0-11 00:00: 00 Yes Anibal Elizalde TAKE 1 TABLET BY MOUTH TWO TIMES DAILY 2021-08- 00:00: 00 Yes Anibal Elizalde TAKE 1 TABLET BY MOUTH TWICE A DAY 04-30 00:00: 00 Yes Anibal Elizalde TAKE ONE (1) TABLET(S) BY MOUTH APPROXIMATE LY 1 HOUR BEFORE SEXUAL ACTIVITY NEEDED. 04-30 00:00: 00 Yes Anibal Elizalde LISINOPRIL 20 MG TABS 04-30 00:00: 00 12-16 00:00 :00 No Anibal Elizalde TAKE 1 TABLET BY MOUTH EVERY 12 HOURS FOR 10 DAYS 03-03 00:00: 00 Yes Anibal Elizalde ONDANSETRON ODT 4 MG TBDP 03-02 00:00: 00 Yes Anibal Elizalde ondansetron (ZOFRAN (PF)) injection 4 mg 05-03 12:30: 00 05-03 11:22 :00 No 4mg 4 mg, Slow IV Push, ONCE, 1 dose, On Meghan 05/03/21 at 0730, LEESA [facility] morpHINE injection 4 mg 05-03 12:30: 00 05-03 11:22 :00 No 4mg 4 mg, Slow IV Push, ONCE, 1 dose, On Meghan 05/03/21 at 0730, STAT [facility] sodium chloride (NS) injection 5 mL 05-03 10:49: 08 Yes 5mL 5 mL, Intravenou s, PRN, Starting on Meghan 05/03/21 at 0549, Until Discontinu ed, Routine, IV line flushing [facility] acetaminoph en 325 mg tablet 09-08 00:00: 00 Yes 650mg Take 2 tablets by mouth every 6 (six) hours as needed for Pain (scale 1-3), Pain (scale 4-6) or Temp > 38.5 C. [facility] levETIRAcet am 1,000 mg tablet 09-08 00:00: 00 Yes 1000mg Take 1 tablet by mouth 2 (two) times daily. [facility] metoprolol tartrate 50 mg tablet 09-08 00:00: 00 Yes 50mg Take 1 tablet by mouth 2 (two) times daily. [facility] EUCERIN cream 09-08 00:00: 00 Yes Apply to area(s) 2 (two) times daily. [facility] docusate 100 mg capsule 09-08 00:00: 00 Yes 100mg Take 1 capsule by mouth 2 (two) times daily. [facility] acetaminoph en-codeine 300-30 mg tablet 09-08 00:00: 00 Yes 1{tbl} Take 1 tablet by mouth every 6 (six) hours as needed for Pain (scale 7-10). [facility] aspirin 81 mg chewable tablet 09-08 00:00: 00 Yes 81mg Take 1 tablet by mouth daily. [facility] levoFLOXaci n 500 mg tablet 09-08 00:00: 00 Yes 500mg Take 1 tablet by mouth every 24 (twenty-fo ur) hours.X 3 MOS.HG [facility] nortriptyli ne 75 mg capsule 09-08 00:00: 00 Yes 75mg Take 1 capsule by mouth 2 (two) times daily. [facility] Vital Signs Vital Name Observation Time Observation Value Comments S héctorce Height 2022-11-27 11:01:00 170.18 CM Weight 2022-11-27 11:01:00 124.91 KG Systolic blood pressure 2021-05-03 14:00:00 150 mm[Hg] [facility] Diastolic blood pressure 2021-05-03 14:00:00 113 mm[Hg] [facility] Heart rate 2021-05-03 14:00:00 107 /min [facility] Respiratory rate 2021-05-03 14:00:00 23 /min [facility] Oxygen saturation in Arterial blood by Pulse oximetry 2021-05-03 14:00:00 96 /min [facility] Body temperature 2021-05-03 10:40:00 36.5 Patricia [facility] Body height 2021-05-03 10:40:00 170.2 cm [facility] 2021-05-03 10:40:00 81.647 kg [facility] BMI 2021-05-03 10:40:00 28.19 kg/m2 [facility] BP Systolic 2024-09-24 10:28:00 157 mm[Hg] Step hen F Tonio BP Diastolic 2024-09-24 10:28:00 105 mm[Hg] Chay phen F Tonio Weight Measured 2024-09-24 10:28:00 305.00 pounds Anibal F Tonio Height Measured 2024-09-24 10:28:00 67.00 inches Anibal F Tonio Body Temperature 2024-09-24 10:28:00 98.10 degrees Anibal F Tonio Heart Rate 2024-09-24 10:28:00 103.00 /min Step hen F Tonio Respiratory Rate 2024-09-24 10:28:00 20.00 /min Anibal F Tonio BP Systolic 2024-09-24 09:10:00 157 mm[Hg] Step hen F Tonio BP Diastolic 2024-09-24 09:10:00 105 mm[Hg] Chay phen F Tonio Weight Measured 2024-09-24 09:10:00 305.00 pounds Anibal F Tonio Height Measured 2024-09-24 09:10:00 67.00 inches Anibal F Tonio Body Temperature 2024-09-24 09:10:00 98.10 degrees Anibal F Toino Heart Rate 2024-09-24 09:10:00 103.00 /min Step hen F Tonio Respiratory Rate 2024-09-24 09:10:00 20.00 /min Anibal F Tonio BP Systolic 2024-09-17 09:50:00 150 mm[Hg] Step hen F Tonio BP Diastolic 2024-09-17 09:50:00 88 mm[Hg] Chay phen F Tonio Weight Measured 2024-09-17 09:50:00 307.00 pounds Anibal F Tonio Height Measured 2024-09-17 09:50:00 67.00 inches Anibal F Tonio Body Temperature 2024-09-17 09:50:00 98.00 degrees Anibal F Tonio Heart Rate 2024-09-17 09:50:00 88.00 /min Malou en F Tonio Respiratory Rate 2024-09-17 09:50:00 19.00 /min Anibal F Tonio BP Systolic 2024-08-30 13:31:00 116 mm[Hg] Step hen F Tonio BP Diastolic 2024-08-30 13:31:00 76 mm[Hg] Chay phen F Tonio Weight Measured 2024-08-30 13:31:00 305.00 pounds Anibal F Tonio Height Measured 2024-08-30 13:31:00 67.00 inches Anibal F Tonio Body Temperature 2024-08-30 13:31:00 98.00 degrees Anibal F Tonio Heart Rate 2024-08-30 13:31:00 103.00 /min Step hen F Tonio Respiratory Rate 2024-08-30 13:31:00 18.00 /min Anibal F Tonio BP Systolic 2024-06-29 14:17:00 146 mm[Hg] Step hen F Tonio BP Diastolic 2024-06-29 14:17:00 98 mm[Hg] Chay phen F Tonio Weight Measured 2024-06-29 14:17:00 304.00 pounds Anibal F Tonio Height Measured 2024-06-29 14:17:00 67.00 inches Anibal F Tonio Body Temperature 2024-06-29 14:17:00 98.10 degrees Anibal F Tonio Heart Rate 2024-06-29 14:17:00 101.00 /min Step hen F Tonio Respiratory Rate 2024-06-29 14:17:00 20.00 /min Anibal F Tonio BP Systolic 2024-06-29 13:31:00 146 mm[Hg] Step hen F Tonio BP Diastolic 2024-06-29 13:31:00 98 mm[Hg] Chay phen F Tonio Weight Measured 2024-06-29 13:31:00 304.00 pounds Anibal F Tonio Height Measured 2024-06-29 13:31:00 67.00 inches Anibal F Tonio Body Temperature 2024-06-29 13:31:00 98.10 degrees Anibal F Tonio Heart Rate 2024-06-29 13:31:00 101.00 /min Step hen F Tonio Respiratory Rate 2024-06-29 13:31:00 20.00 /min Anibal F Tonio BP Systolic 2024-06-07 13:53:00 138 mm[Hg] Step hen F Tonio BP Diastolic 2024-06-07 13:53:00 86 mm[Hg] Chay phen F Tonio Weight Measured 2024-06-07 13:53:00 305.00 pounds Anibal F Tonio Height Measured 2024-06-07 13:53:00 67.00 inches Anibal F Tonio Body Temperature 2024-06-07 13:53:00 98.40 degrees Anibal F Tonio Heart Rate 2024-06-07 13:53:00 101.00 /min Step hen F Tonio Respiratory Rate 2024-06-07 13:53:00 18.00 /min Anibal F Tonio Height Measured 2024-03-16 10:10:00 67.00 inches Anibal F Tonio Body Temperature 2024-03-16 10:10:00 98.40 degrees Anibal F Tonio Heart Rate 2024-03-16 10:10:00 62.00 /min Malou en F Tonio Respiratory Rate 2024-03-16 10:10:00 20.00 /min Anibal F Tonio BP Systolic 2024-03-16 10:10:00 136 mm[Hg] Step hen F Tonio BP Diastolic 2024-03-16 10:10:00 84 mm[Hg] Chay phen F Tonio Weight Measured 2024-03-16 10:10:00 307.00 pounds Anibal F Tonio BP Diastolic 2023-12-15 10:01:00 86 mm[Hg] Chay phen F Tonio Weight Measured 2023-12-15 10:01:00 307.00 pounds Anibal F Tonio Height Measured 2023-12-15 10:01:00 67.00 inches Anibal F Tonio Body Temperature 2023-12-15 10:01:00 98.70 degrees Anibal F Tonio Heart Rate 2023-12-15 10:01:00 78.00 /min Malou en F Tonio Respiratory Rate 2023-12-15 10:01:00 20.00 /min Anibal F Tonio BP Systolic 2023-12-15 10:01:00 130 mm[Hg] Step hen F Tonio BP Systolic 2023-07-11 10:55:00 132 mm[Hg] Step hen F Tonio BP Diastolic 2023-07-11 10:55:00 90 mm[Hg] Chay phen F Tonio Weight Measured 2023-07-11 10:55:00 299.00 pounds Anibal F Tonio Height Measured 2023-07-11 10:55:00 67.00 inches Anibal F Tonio Body Temperature 2023-07-11 10:55:00 98.20 degrees Anibal F Tonio Heart Rate 2023-07-11 10:55:00 101.00 /min Step hen F Tonio Respiratory Rate 2023-07-11 10:55:00 20.00 /min Anibal F Tonio BP Systolic 2023-06-04 08:54:00 152 mm[Hg] Step hen F Tonio BP Diastolic 2023-06-04 08:54:00 100 mm[Hg] Chay phen F Tonio Weight Measured 2023-06-04 08:54:00 286.00 pounds Anibal F Tonio Height Measured 2023-06-04 08:54:00 67.00 inches Anibal F Tonio Body Temperature 2023-06-04 08:54:00 97.60 degrees Anibal F Tonio Heart Rate 2023-06-04 08:54:00 109.00 /min Step hen F Tonio Respiratory Rate 2023-06-04 08:54:00 20.00 /min Anibal F Tonio BP Systolic 2023-03-26 11:53:00 180 mm[Hg] Step hen F Tonio BP Diastolic 2023-03-26 11:53:00 100 mm[Hg] Chay phen F Tonio Weight Measured 2023-03-26 11:53:00 297.00 pounds Anibal F Tonio Height Measured 2023-03-26 11:53:00 67.00 inches Anibal F Tonio Body Temperature 2023-03-26 11:53:00 98.30 degrees Anibal F Tonio Heart Rate 2023-03-26 11:53:00 137.00 /min Step hen F Tonio Respiratory Rate 2023-03-26 11:53:00 22.00 /min Anibal F Tonio BP Systolic 2022-12-16 17:02:00 139 mm[Hg] Step hen F Tonio BP Diastolic 2022-12-16 17:02:00 100 mm[Hg] Chay phen F Tonio Weight Measured 2022-12-16 17:02:00 272.00 pounds Anibal F Tonio Height Measured 2022-12-16 17:02:00 67.00 inches Anibal F Tonio Body Temperature 2022-12-16 17:02:00 98.80 degrees Anibal F Tonio Heart Rate 2022-12-16 17:02:00 105.00 /min Frank Elizalde Respiratory Rate 2022-12-16 17:02:00 18.00 /min Anibal Elizalde BP Systolic 2022-11-15 18:28:00 Frank Elizalde BP Diastolic 2022-11-15 18:28:00 Chay Elizalde Weight Measured 2022-11-15 18:28:00 262.00 pounds Anibal Elizalde Height Measured 2022-11-15 18:28:00 67.00 inches Anibal Elizalde Body Temperature 2022-11-15 18:28:00 Anibal Elizalde Heart Rate 2022-11-15 18:28:00 Malou en Mitchell Elizalde Respiratory Rate 2022-11-15 18:28:00 Anibal Elizalde Procedures Procedure Date / Time Performed Performing Clinician Source DETACH LT FOOT PARTIAL 5TH RAY OPEN 2022-11-27 00:00:00 [facility] TROPONIN I 2021-05-03 12:29:00 Madalyn Bernard [facility] EKG-12 LEAD 2021-05-03 12:19:52 Madalyn Bernard [facility] XR CHEST 1 VW 2021-05-03 11:02:10 [facility] LIPASE 2021-05-03 10:50:00 Madalyn Bernard [facility] TROPONIN I 2021-05-03 10:50:00 Madalyn Bernard [facility] COMP. METABOLIC PANEL ([id number]) 2021-05-03 10:50:00 Madalyn Bernard [facility] CBC WITH DIFF 2021-05-03 10:50:00 Madalyn [facility] PROTHROMBIN TIME / INR 2021-05-03 10:50:00 Braden Bernard [facility] ACTIVATED PARTIAL THRMPLAS DAPHNE 2021-05-03 10:50:00 Madalyn Bernard [facility] Encounters Start Date/Time End Date/Time Encounter Type Admission Type Attending Clinicians Care Facility Care Department Encounter ID Source 2021-06-05 02:34:14 Emergency [facility] [id number] [facility] 2024-09-28 17:22:57 2024-09-28 17:22:57 Outpatient [facility] SFA [id number] Anibal Elizalde 2024-09-24 08:55:40 2024-09-24 08:55:40 Outpatient SFA SFA [id number] Anibal Elizalde 2024-09-24 00:00:00 2024-09-24 00:00:00 Outpatient Visit SFA [id number] Anibal Elizalde 2024-09-17 00:00:00 2024-09-17 00:00:00 Outpatient Visit SFA [id number] Anibal Elizalde 2024-08-30 13:19:47 2024-08-30 13:19:47 Outpatient SFA SFA [id number] Anibal Elizalde 2024-08-30 00:00:00 2024-08-30 00:00:00 Outpatient Visit SFA [id number] Anibal Elizalde 2024-06-29 13:23:29 2024-06-29 13:23:29 Outpatient SFA SFA [id number] Anibal Elizalde 2024-06-29 00:00:00 2024-06-29 00:00:00 Outpatient Visit SFA [id number] Anibal Elizalde 2024-06-07 13:47:39 2024-06-07 13:47:39 Outpatient SFA SFA [id number] Anibal Elizalde 2024-06-07 00:00:00 2024-06-07 00:00:00 Outpatient Visit SFA [id number] Anibal Elizalde 2024-03-16 10:10:32 2024-03-16 10:10:32 Outpatient SFA SFA [id number] Anibal Elizalde 2024-03-16 00:00:00 2024-03-16 00:00:00 Outpatient Visit SFA [id number] Anibal Elizalde 2023-12-15 10:00:54 2023-12-15 10:00:54 Outpatient SFA SFA [id number] Anibal Elizalde 2023-12-15 00:00:00 2023-12-15 00:00:00 Outpatient Visit SFA [id number] Anibal Elizalde 2023-07-11 11:02:37 2023-07-11 11:02:37 Outpatient SFA SFA [id number] Anibal Elizalde 2023-06-04 08:42:56 2023-06-04 08:42:56 Outpatient SFA SFA [id number] Anibal Elizalde 2023-03-26 11:32:53 2023-03-26 11:32:53 Outpatient SFA SFA [id number] Anibal Elizalde 2022-12-16 17:21:23 2022-12-16 17:21:23 Outpatient SFA SFA [id number] Anibal Elizalde 2022-11-15 13:45:52 2022-11-15 13:45:52 Outpatient SFA SFA [id number] Anibal Elizalde 2021-05-03 05:45:00 2021-05-03 09:21:00 Emergency Madalyn Bernard [facility] [id number] [facility] 2013-04-16 07:05:00 2013-04-16 23:59:00 Outpatient C [facility] PHYS[facility] [id number] [facility] Results Test Description Test Time Test Comments Results Result Co mments Source Anibal Wood [id number] 00:00:00* Test Item Value Reference Range Interpretation Comme nts CHOLESTEROL (test code = 2210) 241 MG/DL TRIGLYCERIDES (test code = 2232) 353 MG/DL HDL CHOLESTEROL (test code = 2220) 38 MG/DL CALC LDL CHOL (test code = 2237) 149 MG/DL RISK RATIO LDL/HDL (test cod e = 2238) 3.92 RATIO Anibal [id number] 00:00:00* Test Item Value Reference Range Interpretation Comme nts TSH, THIRD GENERATION (test code = 2821) 1.270 UIU/ML Anibal ElizaldeCOMPREHENSIVE METABOLIC [id number] 00:00:00* Test Item Value Reference Range Interpretation Comme nts GLUCOSE (test code = 2217) 89 MG/DL BUN (test code = 2208) 16 MG/DL CREATININE (test code = 2214) 0.80 MG/DL eGFR (2020 CKD-EPI) (test code = 59894) 115 ML/MIN/1.73 CALC BUN/CREAT (test code = 2235) 20 RATIO SODIUM (test code = 2231) 137 MEQ/L POTASSIUM (test code = 2228) 4.9 MEQ/L CHLORIDE (test code = 2215) 101 MEQ/L CARBON DIOXIDE (test code = 2206) 19 MEQ/L CALCIUM (test code = 2209) 9.2 MG/DL PROTEIN, TOTAL (test code = 2229) 7.7 G/DL ALBUMIN (test code = 2201) 4.4 G/DL CALC GLOBULIN (test code = 2240) 3.3 G/DL CALC A/G RATIO (test code = 2234) 1.3 RATIO BILIRUBIN, TOTAL (test code = 2207) 0.4 MG/DL ALKALINE PHOSPHATASE (test code = 2204) 78 U/L AST (test code = 2218) 27 U/L ALT (test code = 2219) 14 U/L Anibal ElizaldeCBC W/AUTO [id number] 00:00:00* Test Item Value Reference Range Interpretation Comme nts WBC (test code = 1001) 5.5 K/UL RBC (test code = 1002) 4.79 M/UL HEMOGLOBIN (test code = 1003) 14.7 G/DL HEMATOCRIT (test code = 1004) 44.2 % MCV (test code = 1005) 92.3 fL MCH (test code = 1006) 30.7 PG MCHC (test code = 1007) 33.3 G/DL RDW (test code = 1038) 14.4 % NEUTROPHILS (test code = 1008) 53.5 % LYMPHOCYTES (test code = 1010) 33.0 % MONOCYTES (test code = 1011) 8.6 % EOSINOPHILS (test code = 1012) 4.0 % BASOPHILS (test code = 1013) 0.4 % IMMATURE GRANULOCYTES (test code = 1036) 0.5 % NUCLEATED RBCS (test code = 1065) 0.0 /100WBC'S PLATELET COUNT (test code = 1015) 261 K/UL ABSOLUTE NEUTROPHILS (test c ode = 1066) 2.92 K/UL ABSOLUTE LYMPHOCYTES (test c ode = 1067) 1.80 K/UL ABSOLUTE MONOCYTES (test cod e = 1068) 0.47 K/UL ABSOLUTE EOSINOPHILS (test c ode = 1040) 0.22 K/UL ABSOLUTE BASOPHILS (test cod e = 1069) 0.02 K/UL ABS IMMATURE GRANULOCYTES (t est code = 1020) 0.03 K/UL ABS NUCLEATED RBCS (test cod e = 96671) 0.00 K/UL Anibal Medrano AustinLIPID [id number] 00:00:00* Test Item Value Reference Range Interpretation Comme nts CHOLESTEROL (test code = 2210) 241 MG/DL TRIGLYCERIDES (test code = 2232) 353 MG/DL HDL CHOLESTEROL (test code = 2220) 38 MG/DL CALC LDL CHOL (test code = 2237) 149 MG/DL RISK RATIO LDL/HDL (test cod e = 2238) 3.92 RATIO Anibal [id number] 00:00:00* Test Item Value Reference Range Interpretation Comme nts TSH, THIRD GENERATION (test code = 2821) 1.270 UIU/ML Anibal ElizaldeCOMPREHENSIVE METABOLIC [id number] 00:00:00* Test Item Value Reference Range Interpretation Comme nts GLUCOSE (test code = 2217) 89 MG/DL BUN (test code = 2208) 16 MG/DL CREATININE (test code = 2214) 0.80 MG/DL eGFR (2020 CKD-EPI) (test code = 44057) 115 ML/MIN/1.73 CALC BUN/CREAT (test code = 2235) 20 RATIO SODIUM (test code = 2231) 137 MEQ/L POTASSIUM (test code = 2228) 4.9 MEQ/L CHLORIDE (test code = 2215) 101 MEQ/L CARBON DIOXIDE (test code = 2206) 19 MEQ/L CALCIUM (test code = 2209) 9.2 MG/DL PROTEIN, TOTAL (test code = 2229) 7.7 G/DL ALBUMIN (test code = 2201) 4.4 G/DL CALC GLOBULIN (test code = 2240) 3.3 G/DL CALC A/G RATIO (test code = 2234) 1.3 RATIO BILIRUBIN, TOTAL (test code = 2207) 0.4 MG/DL ALKALINE PHOSPHATASE (test code = 2204) 78 U/L AST (test code = 2218) 27 U/L ALT (test code = 2219) 14 U/L Anibal Medrano [facility] W/AUTO [id number] 00:00:00* Test Item Value Reference Range Interpretation Comme nts WBC (test code = 1001) 5.5 K/UL RBC (test code = 1002) 4.79 M/UL HEMOGLOBIN (test code = 1003) 14.7 G/DL HEMATOCRIT (test code = 1004) 44.2 % MCV (test code = 1005) 92.3 fL MCH (test code = 1006) 30.7 PG MCHC (test code = 1007) 33.3 G/DL RDW (test code = 1038) 14.4 % NEUTROPHILS (test code = 1008) 53.5 % LYMPHOCYTES (test code = 1010) 33.0 % MONOCYTES (test code = 1011) 8.6 % EOSINOPHILS (test code = 1012) 4.0 % BASOPHILS (test code = 1013) 0.4 % IMMATURE GRANULOCYTES (test code = 1036) 0.5 % NUCLEATED RBCS (test code = 1065) 0.0 /100WBC'S PLATELET COUNT (test code = 1015) 261 K/UL ABSOLUTE NEUTROPHILS (test c ode = 1066) 2.92 K/UL ABSOLUTE LYMPHOCYTES (test c ode = 1067) 1.80 K/UL ABSOLUTE MONOCYTES (test cod e = 1068) 0.47 K/UL ABSOLUTE EOSINOPHILS (test c ode = 1040) 0.22 K/UL ABSOLUTE BASOPHILS (test cod e = 1069) 0.02 K/UL ABS IMMATURE GRANULOCYTES (t est code = 1020) 0.03 K/UL ABS NUCLEATED RBCS (test cod e = 43039) 0.00 K/UL Anibal ElizaldeLIPID [id number] 00:00:00* Test Item Value Reference Range Interpretation Comme nts CHOLESTEROL (test code = 2210) 241 MG/DL TRIGLYCERIDES (test code = 2232) 353 MG/DL HDL CHOLESTEROL (test code = 2220) 38 MG/DL CALC LDL CHOL (test code = 2237) 149 MG/DL RISK RATIO LDL/HDL (test cod e = 2238) 3.92 RATIO Anibal [id number] 00:00:00* Test Item Value Reference Range Interpretation Comme nts TSH, THIRD GENERATION (test code = 2821) 1.270 UIU/ML Anibal ElizaldeCOMPREHENSIVE METABOLIC [id number] 00:00:00* Test Item Value Reference Range Interpretation Comme nts GLUCOSE (test code = 2217) 89 MG/DL BUN (test code = 2208) 16 MG/DL CREATININE (test code = 2214) 0.80 MG/DL eGFR (2020 CKD-EPI) (test code = 81058) 115 ML/MIN/1.73 CALC BUN/CREAT (test code = 2235) 20 RATIO SODIUM (test code = 2231) 137 MEQ/L POTASSIUM (test code = 2228) 4.9 MEQ/L CHLORIDE (test code = 2215) 101 MEQ/L CARBON DIOXIDE (test code = 2206) 19 MEQ/L CALCIUM (test code = 2209) 9.2 MG/DL PROTEIN, TOTAL (test code = 2229) 7.7 G/DL ALBUMIN (test code = 2201) 4.4 G/DL CALC GLOBULIN (test code = 2240) 3.3 G/DL CALC A/G RATIO (test code = 2234) 1.3 RATIO BILIRUBIN, TOTAL (test code = 2207) 0.4 MG/DL ALKALINE PHOSPHATASE (test code = 2204) 78 U/L AST (test code = 2218) 27 U/L ALT (test code = 2219) 14 U/L Anibal ElizaldeCBC W/AUTO [id number] 00:00:00* Test Item Value Reference Range Interpretation Comme nts WBC (test code = 1001) 5.5 K/UL RBC (test code = 1002) 4.79 M/UL HEMOGLOBIN (test code = 1003) 14.7 G/DL HEMATOCRIT (test code = 1004) 44.2 % MCV (test code = 1005) 92.3 fL MCH (test code = 1006) 30.7 PG MCHC (test code = 1007) 33.3 G/DL RDW (test code = 1038) 14.4 % NEUTROPHILS (test code = 1008) 53.5 % LYMPHOCYTES (test code = 1010) 33.0 % MONOCYTES (test code = 1011) 8.6 % EOSINOPHILS (test code = 1012) 4.0 % BASOPHILS (test code = 1013) 0.4 % IMMATURE GRANULOCYTES (test code = 1036) 0.5 % NUCLEATED RBCS (test code = 1065) 0.0 /100WBC'S PLATELET COUNT (test code = 1015) 261 K/UL ABSOLUTE NEUTROPHILS (test c ode = 1066) 2.92 K/UL ABSOLUTE LYMPHOCYTES (test c ode = 1067) 1.80 K/UL ABSOLUTE MONOCYTES (test cod e = 1068) 0.47 K/UL ABSOLUTE EOSINOPHILS (test c ode = 1040) 0.22 K/UL ABSOLUTE BASOPHILS (test cod e = 1069) 0.02 K/UL ABS IMMATURE GRANULOCYTES (t est code = 1020) 0.03 K/UL ABS NUCLEATED RBCS (test cod e = 63141) 0.00 K/UL Anibal ElizaldeLIPID [id number] 00:00:00* Test Item Value Reference Range Interpretation Comme nts CHOLESTEROL (test code = 2210) 241 MG/DL TRIGLYCERIDES (test code = 2232) 353 MG/DL HDL CHOLESTEROL (test code = 2220) 38 MG/DL CALC LDL CHOL (test code = 2237) 149 MG/DL RISK RATIO LDL/HDL (test cod e = 2238) 3.92 RATIO Anibal [id number] 00:00:00* Test Item Value Reference Range Interpretation Comme nts TSH, THIRD GENERATION (test code = 2821) 1.270 UIU/ML Anibal Medrano TonioCOMPREHENSIVE METABOLIC [id number] 00:00:00* Test Item Value Reference Range Interpretation Comme nts GLUCOSE (test code = 2217) 89 MG/DL BUN (test code = 2208) 16 MG/DL CREATININE (test code = 2214) 0.80 MG/DL eGFR (2020 CKD-EPI) (test code = 54626) 115 ML/MIN/1.73 CALC BUN/CREAT (test code = 2235) 20 RATIO SODIUM (test code = 2231) 137 MEQ/L POTASSIUM (test code = 2228) 4.9 MEQ/L CHLORIDE (test code = 2215) 101 MEQ/L CARBON DIOXIDE (test code = 2206) 19 MEQ/L CALCIUM (test code = 2209) 9.2 MG/DL PROTEIN, TOTAL (test code = 2229) 7.7 G/DL ALBUMIN (test code = 2201) 4.4 G/DL CALC GLOBULIN (test code = 2240) 3.3 G/DL CALC A/G RATIO (test code = 2234) 1.3 RATIO BILIRUBIN, TOTAL (test code = 2207) 0.4 MG/DL ALKALINE PHOSPHATASE (test code = 2204) 78 U/L AST (test code = 2218) 27 U/L ALT (test code = 2219) 14 U/L Anibal Medrano [facility] [id number] 00:00:00* Test Item Value Reference Range Interpretation Comme nts WBC (test code = 1001) 5.5 K/UL RBC (test code = 1002) 4.79 M/UL HEMOGLOBIN (test code = 1003) 14.7 G/DL HEMATOCRIT (test code = 1004) 44.2 % MCV (test code = 1005) 92.3 fL MCH (test code = 1006) 30.7 PG MCHC (test code = 1007) 33.3 G/DL RDW (test code = 1038) 14.4 % NEUTROPHILS (test code = 1008) 53.5 % LYMPHOCYTES (test code = 1010) 33.0 % MONOCYTES (test code = 1011) 8.6 % EOSINOPHILS (test code = 1012) 4.0 % BASOPHILS (test code = 1013) 0.4 % IMMATURE GRANULOCYTES (test code = 1036) 0.5 % NUCLEATED RBCS (test code = 1065) 0.0 /100WBC'S PLATELET COUNT (test code = 1015) 261 K/UL ABSOLUTE NEUTROPHILS (test c ode = 1066) 2.92 K/UL ABSOLUTE LYMPHOCYTES (test c ode = 1067) 1.80 K/UL ABSOLUTE MONOCYTES (test cod e = 1068) 0.47 K/UL ABSOLUTE EOSINOPHILS (test c ode = 1040) 0.22 K/UL ABSOLUTE BASOPHILS (test cod e = 1069) 0.02 K/UL ABS IMMATURE GRANULOCYTES (t est code = 1020) 0.03 K/UL ABS NUCLEATED RBCS (test cod e = 78880) 0.00 K/UL Anibal ElizaldeLIPID [id number] 00:00:00* Test Item Value Reference Range Interpretation Comme nts CHOLESTEROL (test code = 2210) 241 MG/DL TRIGLYCERIDES (test code = 2232) 353 MG/DL HDL CHOLESTEROL (test code = 2220) 38 MG/DL CALC LDL CHOL (test code = 2237) 149 MG/DL RISK RATIO LDL/HDL (test cod e = 2238) 3.92 RATIO Anibal [id number] 00:00:00* Test Item Value Reference Range Interpretation Comme nts TSH, THIRD GENERATION (test code = 2821) 1.270 UIU/ML Anibal ElizaldeCOMPREHENSIVE METABOLIC [id number] 00:00:00* Test Item Value Reference Range Interpretation Comme nts GLUCOSE (test code = 2217) 89 MG/DL BUN (test code = 2208) 16 MG/DL CREATININE (test code = 2214) 0.80 MG/DL eGFR (2020 CKD-EPI) (test code = 23131) 115 ML/MIN/1.73 CALC BUN/CREAT (test code = 2235) 20 RATIO SODIUM (test code = 2231) 137 MEQ/L POTASSIUM (test code = 2228) 4.9 MEQ/L CHLORIDE (test code = 2215) 101 MEQ/L CARBON DIOXIDE (test code = 2206) 19 MEQ/L CALCIUM (test code = 2209) 9.2 MG/DL PROTEIN, TOTAL (test code = 2229) 7.7 G/DL ALBUMIN (test code = 2201) 4.4 G/DL CALC GLOBULIN (test code = 2240) 3.3 G/DL CALC A/G RATIO (test code = 2234) 1.3 RATIO BILIRUBIN, TOTAL (test code = 2207) 0.4 MG/DL ALKALINE PHOSPHATASE (test code = 2204) 78 U/L AST (test code = 2218) 27 U/L ALT (test code = 2219) 14 U/L Anibal ElizaldeACID FAST AND STAIN CULTURE 2023-01-16 13:11:00* Test Item Value Reference Range Interpretation Comme nts SMEAR (test code = 39486538) MYCOBACTERIA, CU LTURE, WITH FLUOROCHROME SMEAR Micro Number: [id number] Test Status: Final Specimen Source: Foot-left Specimen Quality: Adequate Smear: No acid-fast bacilli seen using the fluorochrome method. Result: No Mycobacterium species isolated after 6 weeks incubation.TEST PERFORMED AT:[facility] [id number] [place] [id number] REYNOSO MD FUNGUS CULTURE & STAIN 2022-12-12 15:36:00* Test Item Value Reference Range Interpretation Comme nts SMEAR (test code = 11220581) CULTURE, FUNGUS W/SMEAR NOT HAIR, SKIN, BLOOD Micro Number: [id number] Test Status: Final Specimen Source: Foot-left Specimen Quality: Inadequate Smear: Test not performed. The specimen exceeds stability for the test requested. Result: Test not performed. The specimen exceeds stability for the test requested.TEST PERFORMED AT:[facility] [id number] [place] [address]GNIBIDCHRISTINA REYNOSO MD ANAEROBIC [id number] 10:13:00* Test Item Value Reference Range Interpretation Comme nts Culture Observations (test code = COB1) NO ANAEROBES ISOLATED AT 5 DAYS. CULTURE HELD FOR 5 DAYS WOUND/SKIN/ABS.&GRAMSTAIN [id number] 09:16:00* Test Item Value Reference Range Interpretation Comme nts Culture Observations (test code = COB1) NORMAL SKIN NA Direct Exam (test code = DE1) Few gram positive cocci Direct Exam (test code = DE2) few wbc XR FOOT LEFT COMPLETE 3 VIEWS*WW*2022-11-27 15:34:59 [facility] : 1985 Sex: MEXAMINATION:XR FOOT LEFT COMPLETE 3 VIEWS*WW*CLINICAL INDICATION:Male, 37 years old with Chronic osteomyelitisof left footCOMPARISON: NoneFINDINGS:Three view(s) of the left foot obtained.Joint spaces: Anatomic.Bones: 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 No visualized acute fracture. No focal erosive or destructive process.Soft tissues: Soft tissue wound at the stump of the 5th toe adjacent to the head of the 4th metatarsal.IMPRESSION: Lateral soft tissue wound and swelling with no underlying acute osseous abnormality.Electronically signed by: Jaswinder Morris MD 11/27/2022 3:34 PM CDT [id number] I 2021-05-03 13:34:14* Test Item Value Reference Range Interpretation Comments TROPONIN I (test code = 6937508965) 0.003 ng/mL See_Comment [Automated message] The system which generated this result transmitted reference range: <=0.034. The reference range was not used to interpret this result as normal/abnormal. TED (test code = TED) Reference (Normal) [...] to patient's use of biotin. Lab Interpretation (test code = 38373-0) Normal [facility] [id number] 11:25:27* Test Item Value Reference Range Interpretation Comments TROPONIN I (test code = 7902291229) 0.002 ng/mL See_Comment [Automated message] The system which generated this result transmitted reference range: <=0.034. The reference range was not used to interpret this result as normal/abnormal. TED (test code = TED) Reference (Normal) [...] to patient's use of biotin. Lab Interpretation (test code = 94548-3) Normal [facility]. METABOLIC PANEL (84179)2021-05-03 11:14:20* Test Item Value Reference Range Interpretation Comme nts NA (test code = 9777774826) 141 mmol/L 135-145 K (test code = 2967563745) 3.6 mmol/L 3.5-5.0 CL (test code = 8511442558) 102 mmol/L 98-108 CO2 TOTAL (test code = 4850706473) 31 mmol/L 23-31 AGAP (test code = 4972113862) 2-16 BUN (test code = 8550082718) 18 mg/dL 7-23 GLUCOSE (test code = 1398977259) 120 mg/dL 70-110 H CREATININE (test code = 2991093381) 0.87 mg/dL 0.60-1.25 TOTAL BILI (test code = 2216093015) 1.0 mg/dL 0.1-1.1 CALCIUM (test code = 2271398178) 9.9 mg/dL 8.6-10.6 T PROTEIN (test code = 0847588268) 8.6 g/dL 6.3-8.2 H ALBUMIN (test code = 3077777132) 4.6 g/dL 3.5-5.0 ALK PHOS (test code = 4957235251) 59 U/L 34-122 ALTv (test code = 1742-6) 8 U/L 5-50 AST(SGOT) (test code = 4249431528) 22 U/L 13-40 eGFR (test code = 3949573327) mL/min/1.73m2 TED (test code = TED) Association of [...] or abnormalities in imaging tests). Lab Interpretation (test code = 77300-5) [facility]normal [facility], [id number] 11:13:45* Test Item Value Reference Range Interpretation Comme [facility] LIPASE (test code = 1937004664) 67 U/L 0-220 Lab Interpretation (test cod e = 93624-9) Normal [facility] CampusaPTT2021-09-30 11:06:41* Test Item Value Reference Range Interpretation Comme [facility] APTT Patient (test code = 3173-2) See_Comment [Automated message] The system which generated this result transmitted reference range: 23 - 38 Seconds. The reference range was not used to interpret this result as normal/abnormal. TED (test code = TED) The [facility] patient population mean normal value for aPTT is 30 seconds. Lab Interpretation (test code = 91316-5) Normal [facility] CampusPROTHROMBIN TIME / [id number] 11:04:22* Test Item Value Reference Range Interpretation Comme nts PROTIME PATIENT (test code = 5964-2) See_Comment [Automated messa ge] The system which generated this result transmitted reference range: 12.0 - 14.7 Seconds. The reference range was not used to interpret this result as normal/abnormal. INR (test code = 6301-6) Normal INR <1.1; Warfarin Therapeutic range 2.0 to 3.0 or 2.5 to 3.5, depending upon the indications. Lab Interpretation (test code = 09547-6) Normal [facility] CampusCBC WITH [id number] 10:57:38* Test Item Value Reference Range Interpretation Comme nts WBC (test code = 6690-2) See_Comment [Automated messa ge] The system which generated this result transmitted reference range: 4.20 - 10.70 10*3/?L. The reference range was not used to interpret this result as normal/abnormal. RBC (test code = 789-8) See_Comment H [Automated messa ge] The system which generated this result transmitted reference range: 4.26 - 5.52 10*6/?L. The reference range was not used to interpret this result as normal/abnormal. HGB (test code = 718-7) 15.9 g/dL 12.2-16.4 HCT (test code = 4544-3) 47.7 % 38.4-49.3 MCV (test code = 787-2) 83.1 fL 81.7-95.6 MCH (test code = 785-6) 27.7 pg 26.1-32.7 MCHC (test code = 786-4) 33.3 g/dL 31.2-35.0 RDW-SD (test code = 00091-2) 45.4 fL 38.5-51.6 RDW-CV (test code = 788-0) 15.2 % 12.1-15.4 PLT (test code = 777-3) See_Comment [Automated messa ge] The system which generated this result transmitted reference range: 150 - 328 10*3/?L. The reference range was not used to interpret this result as normal/abnormal. MPV (test code = 57178-1) 8.8 fL 9.8-13.0 L NRBC/100 WBC (test code = 4997666562) See_Comment [Automated me ssage] The system which generated this result transmitted reference range: 0.0 - 10.0 /100 WBCs. The reference range was not used to interpret this result as normal/abnormal. NRBC x10^3 (test code = 0762649552) <0.01 See_Comment [Automated messa ge] The system which generated this result transmitted reference range: 10*3/?L. The reference range was not used to interpret this result as normal/abnormal. GRAN MAT (NEUT) % (test code = 770-8) 58.1 % IMM GRAN % (test code = 2998186390) 0.30 % LYMPH % (test code = 736-9) 31.7 % MONO % (test code = 5905-5) 7.3 % EOS % (test code = 713-8) 2.2 % BASO % (test code = 706-2) 0.4 % GRAN MAT x10^3(ANC) (test code = 4880422294) 4.04 10*3/uL 1.99-6.95 IMM GRAN x10^3 (test code = 4986796787) <0.03 0.00-0.06 LYMPH x10^3 (test code = 731-0) 2.20 10*3/uL 1.09-3.23 MONO x10^3 (test code = 742-7) 0.51 10*3/uL 0.36-1.02 EOS x10^3 (test code = 711-2) 0.15 10*3/uL 0.06-0.53 BASO x10^3 (test code = 704-7) 0.03 10*3/uL 0.01-0.09 Lab Interpretation (test code = 22945-6) Abnormal [facility] Notes Date/Time Note Provider Source Anibal MedranoLorna [facility]2025-02-14 00:00:00 Anibal MedranooLrna [facility]2025-01-27 00:00:00 [facility]2024-11-26 00:00:00 [facility]2024-11-04 00:00:00 [facility]2024-08-13 00:00:00 [facility]2024-05-13 00:00:00 [facility]"
[2024-10-05] MEDS ORDERED: HYDROCODONE/APAP 10/325 TAB ONE (07:22)
[2024-10-05 07:38] LABS: Specific Gravity > 1.030 (1.005-1.030); Sqamous Epithelial <5 /HPF (None Seen); Urine Bacteria <20 /HPF (<20); Urine Bilirubin NEGATIVE (Negative); Urine Blood Negative (Negative); Urine Clarity Clear (Clear); Urine Color Yellow (Yellow); Urine Culture Reflex Order NOT NEEDED; Urine Glucose NEGATIVE (Negative); Urine Ketones TRACE (Negative); Urine Micro Reflex YN NO BILL MICROSCOPIC; Urine Mucus Slight /HPF (None Seen); Urine Nitrite NEGATIVE (Negative); Urine Protein 1+ (Negative); Urine RBC <5 /HPF (None Seen); Urine Urobilinogen Normal (Normal); Urine WBC <5 /HPF (<5)
--- NOTE | 2024-10-05 08:11 | RAD REPORT ---
EXAMINATION: ULTRASOUND DUPLEX OF SCROTUM AND TESTICLES CLINICAL INDICATION: Male, 39 years, testicular pain TECHNIQUE: Duplex scan of the scrotal contents was performed including real-time color and spectral D oppler ultrasonography with arterial inflow and venous outflow. COMPARISON: No prior exam. FINDINGS: RIGHT TESTICLE AND EPIDIDYMIS: The right testicle is enlarged in size, measuring 4.2 x 3.0 x 2.9 cm. Testicular parenchyma on the right is heterogenous. Right epididymis appears enlarged with increased blood flow. Increased blood flow seen to the right testicle. LEFT TESTICLE AND EPIDIDYMIS: The left testicle is normal in size, measuring 3.6 x 2.8 x 2.0 cm. Normal, homogeneous echotexture with no focal lesion seen. The left epididymis is normal. Color Doppler flow in the left testicle is normal. ADDITIONAL FINDINGS: Trace fluid right scrotal sac. IMPRESSION: Right-sided epididymitis-orchitis.
--- NOTE | 2024-10-05 08:24 | ER ---
Nurse's Notes [facility] Name: Rusty Han Age: 39 yrs Sex: Male : 1985 Arrival Date: 10/05/2024 Time: 06:15 Bed 7 Private MD: Diagnosis: Epididymo-orchitis Presentation: 10/05 06:35 Chief complaint: Patient states: i have right side testicle pain for 2 days. bm8 Coronavirus screen: At this time, the client does not indicate any symptoms associated with coronavirus-19. Ebola Screen: Patient negative for fever greater than or equal to 101.5 degrees Fahrenheit, and additional compatible Ebola Virus Disease symptoms Patient denies exposure to infectious person. Patient denies travel to an Ebola-affected area in the 21 days before illness onset. No symptoms or risks identified at this time. Initial Sepsis Screen: Does the patient meet any 2 criteria? No. Patient's initial sepsis screen is negative. Does the patient have a suspected source of infection? No. Patient's initial sepsis screen is negative. Risk Assessment: Do you want to hurt yourself or someone else? Patient reports no desire to harm self or others. Onset of symptoms was October 03, 2024 at 08:00. 06:35 Method Of Arrival: Ambulatory bm8 06:35 Acuity: BRITTNEY 3 bm8 Triage Assessment: 06:36 General: Appears in no apparent distress. uncomfortable, Behavior is cooperative, bm8 anxious. Pain: Complains of pain in right testicle Pain currently is 10 out of 10 on a pain scale. Quality of pain is described as aching, shooting, squeezing. EENT: No deficits noted. No signs and/or symptoms were reported regarding the EENT system. Neuro: No deficits noted. Level of Consciousness is awake, alert, obeys commands, Oriented to person, place, time, situation, Appropriate for age. Cardiovascular: Capillary refill < 3 seconds in bilateral fingers Patient's skin is warm and dry. Respiratory: Airway is patent Respiratory effort is even, unlabored, Respiratory pattern is regular, symmetrical, Breath sounds are clear bilaterally. : Swelling noted on scrotum Reports pain in right testicle. 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 - Infectious Disease History:: Denies. - Social history:: Smoking status: Patient denies any tobacco usage or history of. Patient uses street drugs, marijuana. Screenin:04 [facility] ED Fall Risk Assessment (Adult) History of falling in the last 3 months, bp including since admission No falls in past 3 months (0 pts) Confusion or Disorientation No (0 pts) Intoxicated or Sedated No (0 pts) Impaired Gait No (0 pts) Mobility Assist Device Used No (0 pt) Altered Elimination No (0 pt) Score/Fall Risk Level 0 - 2 = Low Risk Oriented to surroundings. Abuse screen: Denies threats or abuse. Denies injuries from another. Nutritional screening: No deficits noted. Tuberculosis screening: No symptoms or risk factors identified. Assessment: 07:00 General: Appears in no apparent distress. uncomfortable, obese, Behavior is bp cooperative, appropriate for age, anxious. Pain: Complains of pain in right testicle. 08:04 Reassessment: No changes from previously documented assessment. Patient is alert, bp oriented x 3, equal unlabored respirations, skin warm/dry/pink. Vital Signs: 06:35 BP 142 / 91; Pulse 93; Resp 18; Temp 98.2; Pulse Ox 99% ; Weight 138.35 kg; Height 5 bm8 ft. 7 in. ; Pain 10/10; 08:04 BP 120 / 57; Pulse 102; Resp 16; Pulse Ox 95% ; bp 06:35 Body Mass Index 47.77 (138.35 kg, 170.18 cm) bm8 06:35 Pain Scale: Adult 8 ED Course: 06:17 Patient arrived in ED. [id number] 06:35 Ranjit López, RN is Primary Nurse. bm8 06:36 Triage completed. bm8 06:36 Arm band placed on right wrist. bm8 07:00 Scrotum Testicles US In Process Unspecified. EDMS 07:05 Samir Jones DO is Attending Physician. ms3 08:04 Patient has correct armband on for positive identification. bp 08:23 Moose Pfeiffer MD is Referral Physician. ms3 08:45 No provider procedures requiring assistance completed. Patient did not have IV access bp during this emergency room visit. Administered Medications: 07:20 Drug: [place] PO 10 mg-325 mg 1 tabs PO once Route: PO; bp 08:07 Follow up: Response: No adverse reaction bp 08:26 Drug: LevOfloxacin PO 500 mg PO once Route: PO; bp 08:26 Follow up: Response: No adverse reaction bp Medication: 08:04 VIS not applicable for this client. bp Outcome: 08:23 Discharge ordered by . ms3 08:45 Discharged to home via wheelchair, with family, bp 08:45 Condition: stable 08:45 Discharge instructions given to patient, Instructed on discharge instructions, follow up and referral plans. medication usage, Demonstrated understanding of instructions, follow-up care, medications, Prescriptions given X 2, 08:46 Patient left the ED. bp Signatures: Dispatcher [employer] EDMS Carmine Mcelroy, RN RN bp Samir Jones DO DO ms3 Stephany Saha [email or web address] Ranjit López, RN RN bm8
--- NOTE | 2024-10-05 08:24 | EDPHYS ---
Physician Documentation [facility] Name: Rusty Han Age: 39 yrs Sex: Male : 1985 Arrival Date: 10/05/2024 Time: 06:15 Bed 7 Private MD: ED Physician Samir Jones HPI: 10/05 09:34 This 39 yrs old Male presents to ER via Ambulatory with complaints of ms3 Testicular Pain. 09:34 39-year-old male with past medical history of anxiety, chronic pain, hypertension, ms3 osteomyelitis, seizures, T5 injury presents to the emergency department for right testicular pain that began 1 day prior to arrival. Patient rates his pain a 10/10. Patient denies any alleviating or inciting factors. Patient denies penile discharge. Patient states he has 1 partner, his .. 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 - Infectious Disease History:: Denies. - Social history:: Smoking status: Patient denies any tobacco usage or history of. Patient uses street drugs, marijuana. ROS: 09:34 Constitutional: Negative for fever, and chills. Cardiovascular: Negative for chest ms3 pain, and palpitations. Respiratory: Negative for shortness of breath, cough, wheezing, and pleuritic chest pain, Abdomen/GI: Negative for abdominal pain, nausea, vomiting, diarrhea, and constipation, 09:34 : Positive for testicular pain of the right testicle, Exam: 09:34 Constitutional: This is a well developed, well nourished patient who is awake, alert, ms3 and in no acute distress. Cardiovascular: Regular rate and rhythm with a normal S1 and S2. No gallops, murmurs, or rubs. Normal PMI, no JVD. No pulse deficits. Respiratory: Lungs have equal breath sounds bilaterally, clear to auscultation and percussion. No rales, rhonchi or wheezes noted. No increased work of breathing, no retractions or nasal flaring. Abdomen/GI: Soft, non-tender, with normal bowel sounds. No distension or tympany. No guarding or rebound. No evidence of tenderness throughout. Skin: Warm, dry with normal turgor. Normal color with no rashes, no lesions, and no evidence of cellulitis. 09:34 : Male external genitalia: erythema, is absent, penile discharge, is absent, swelling, of the right testicle is noted, tenderness, of the right testicle is noted, of the epididymis area, that is severe, Vital Signs: 06:35 BP 142 / 91; Pulse 93; Resp 18; Temp 98.2; Pulse Ox 99% ; Weight 138.35 kg; Height 5 bm8 ft. 7 in. ; Pain 10/10; 08:04 BP 120 / 57; Pulse 102; Resp 16; Pulse Ox 95% ; bp 06:35 Body Mass Index 47.77 (138.35 kg, 170.18 cm) bm8 06:35 Pain Scale: Adult bm8 MDM: 06:32 Medical Screening Exam initiated sp3 09:34 Differential diagnosis: nonspecific abdominal pain, Epididymitis/orchitis versus ms3 testicular torsion. Data reviewed: vital signs, nurses notes, lab test result(s), radiologic studies, and as a result, I will discharge patient. I considered the following discharge prescriptions or medication management in the emergency department Medications were administered in the Emergency Department. See MAR. Counseling: I had a detailed discussion with the patient and/or guardian regarding the historical points, exam findings, and any diagnostic results supporting the discharge/admit diagnosis, lab results, radiology results, the need for outpatient follow up, to return to the emergency department if symptoms worsen or persist or if there are any questions or concerns that arise at home. Special discussion: I discussed with the patient/guardian in detail that at this point there is no indication for admission to the hospital. It is understood, however, that if the symptoms persist or worsen the patient needs to return immediately for re-evaluation. ED course: Discussed ultrasound report showing epididymitis/orchitis. Patient given Levaquin 500 mg in the emergency department. Patient given prescription for Levaquin 500 mg daily for total of 10 days. Patient to follow-up with Dr. Pfeiffer in 2 to 3 days. Patient understands agrees with plan. All questions were answered. Return precautions discussed include worsening symptoms, or any other concerns. On reevaluation patient is alert and orient x 4, no apparent distress, nontoxic-appearing, speaking full sentences.. 10/05 06:33 Order name: UAM; Complete Time: 08:11 sp3 10/05 06:33 Order name: Scrotum Testicles US; Complete Time: 08:11 sp3 Administered Medications: 07:20 Drug: [place] PO 10 mg-325 mg 1 tabs PO once Route: PO; bp 08:07 Follow up: Response: No adverse reaction bp 08:26 Drug: LevOfloxacin PO 500 mg PO once Route: PO; bp 08:26 Follow up: Response: No adverse reaction bp Disposition Summary: 10/05/24 08:23 Discharge Ordered Notes: Location: Home ms3 Condition: Stable ms3 Diagnosis - Epididymo-orchitis ms3 Followup: ms3 - With: Moose Pfeiffer MD - When: 2 - 3 days - Reason: Recheck today's complaints Discharge Instructions: - Discharge Summary Sheet ms3 - Epididymitis ms3 - Orchitis ms3 Forms: - Medication Reconciliation Form ms3 - Antibiotic Education ms3 - Prescription Opioid Use ms3 - Patient Portal Instructions ms3 - Leadership Thank You Letter ms3 Prescriptions: - Ibuprofen 600 mg Oral Tablet - take 1 tablet ORAL route every 6 hours As needed take with food; 30 tablet; ms3 Refills: 0, Product Selection Permitted - levofloxacin 500 mg Oral tablet - take 1 tablet ORAL route once daily for 9 days. Do not start until 10/06/2024. ms3 First dose given in the Emergency Department on 10/05/2024; 9 tablet; Refills: 0, Product Selection Permitted Signatures: Dispatcher [employer] EDCarmine Tan, RN RN Samir Gonzalez DO DO ms3 Guerda Garcia MD MD sp3 Ranjit López, RN RN bm8 Corrections: (The following items were deleted from the chart) 06:33 06:33 Urinalysis W/Microscopic+U.LAB.BRZ ordered. EDMS EDMS
[2024-10-05] MEDS ORDERED: levoFLOXacin 250 MG TAB ONE (08:25)
[2024-10-05 08:55] VITALS: TEMP 98.2
[2024-10-05 08:56] VITALS: BP 120/57; O2SAT 95
== END 2024-10-05 08:46 | disposition home or self-care (01) ==
LOC: ER 06:15
DX: N45.3 Epididymo-orchitis (principal)
CPT/HCPCS: 76870; 81001